=== PATIENT | male | born 1990 | race African-American/Black ===

== ENCOUNTER → 2017-01-12 | Emergency (ER) | payer OTHER ==
[~2017-01-12] VITALS: Ht 167.6 cm; Wt 70.3 kg
[~2017-01-12] MED LIST: AMOX250C3 PO; CLEO300C2 PO; HYDR-3713 PO; IBUP800T23 PO; NORCOTAB PO
[2017-01-12 23:17] VITALS: BP 134/86
== END | disposition left against medical advice (07) ==
LOC: M ED 23:17
DX: Z53.21 Procedure and treatment not carried out due to patient leaving prior to being seen by health care provider (principal)

== ENCOUNTER 2017-04-25 02:30 | Emergency (ER) | payer OTHER ==
[~2017-04-25] VITALS: Ht 165.1 cm; Wt 70.5 kg
[~2017-04-25 02:30] MED LIST changes: +IBUP1TAB7 PO; -IBUP800T23 PO
[2017-04-25 02:38] VITALS: BP 128/89
[2017-04-26] MEDS ORDERED: CYCL10TA PO (00:48)
[2017-04-26] MEDS ORDERED: IBUP-1022 PO (00:48)
== END 2017-04-25 04:22 | disposition left against medical advice (07) ==
LOC: M ED 02:30
DX: M54.9 Dorsalgia, unspecified (principal); Z53.29 Procedure and treatment not carried out because of patient's decision for other reasons

== ENCOUNTER 2017-04-26 00:22 | Emergency (ER) | payer OTHER ==
[~2017-04-26] VITALS: Ht 165.1 cm; Wt 72.7 kg
[2017-04-26 00:26] VITALS: BP 120/72
[2017-04-26] MEDS ORDERED: CYCL10TA PO (00:48)
[2017-04-26] MEDS ORDERED: IBUP-1022 PO (00:48)
[2017-04-26] MEDS ORDERED: IBUPROFEN 600 MG TAB PO ONE (01:00)
[2017-04-26] MEDS ORDERED: CYCLOBENZAPRINE 10 MG TAB PO ONE (01:00)
== END 2017-04-26 01:13 | disposition home or self-care (01) ==
LOC: M ED 00:22
DX: S43.492A Other sprain of left shoulder joint, initial encounter (principal); F17.210 Nicotine dependence, cigarettes, uncomplicated; X58.XXXA Exposure to other specified factors, initial encounter; Y92.9 Unspecified place or not applicable; Y99.9 Unspecified external cause status; Y93.9 Activity, unspecified

== ENCOUNTER 2017-05-14 01:16 | Emergency (ER) | payer OTHER ==
[~2017-05-14 01:16] MED LIST changes: +CYCL10TA PO; +IBUP-1022 PO
[2017-05-14] MEDS ORDERED: diphenhydrAMINE INJ 50MG/ML VIAL (J1200) As Ordered ONE (03:35)
--- NOTE | 2017-05-14 04:45 | ED PDOC ---
Post-Departure Follow-Up This record was completed partially or completely on paper due to electronic EMR downtime. Please see the scanned paper chart attached. Stephanie Snyder MD May 14, 2017 04:45
[2017-05-15] MEDS ORDERED: BACT800T5 PO (06:26)
== END 2017-05-14 05:01 | disposition home or self-care (01) ==
LOC: M ED 01:16
DX: S50.861A Insect bite (nonvenomous) of right forearm, initial encounter (principal); T63.441A Toxic effect of venom of bees, accidental (unintentional), initial encounter; Y92.9 Unspecified place or not applicable; Y93.9 Activity, unspecified; Y99.9 Unspecified external cause status; F17.200 Nicotine dependence, unspecified, uncomplicated
CPT/HCPCS: 99281; J1200

== ENCOUNTER 2017-05-15 04:13 | Emergency (ER) | payer OTHER ==
[2017-05-15 04:25] VITALS: BP 122/75
[2017-05-15] MEDS ORDERED: BACT800T5 PO (06:26)
[2017-05-15] MEDS ORDERED: NORCO 5/325MG TABLET (BULK FOR ED) PO ONE (06:30)
[2017-05-15] MEDS ORDERED: BACTRIM 160MG/800MG DS TAB PO ONE (06:30)
== END 2017-05-15 06:42 | disposition home or self-care (01) ==
LOC: M ED 04:13
DX: L03.113 Cellulitis of right upper limb (principal); F17.200 Nicotine dependence, unspecified, uncomplicated; M79.1 Myalgia

== ENCOUNTER 2017-06-24 08:18 | Emergency (ER) | payer OTHER ==
[~2017-06-24] VITALS: Ht 167.6 cm; Wt 75.0 kg
[~2017-06-24 08:18] MED LIST changes: +BACT800T5 PO
[2017-06-24] MEDS ORDERED: MOTR200T44 PO (08:27)
[2017-06-24] MEDS ORDERED: KETOROLAC 60 MG/2 ML VIAL (J1885) IM ONE (09:00)
[2017-06-24] MEDS ORDERED: ROBA500T PO (09:34)
[2017-06-24 09:36] VITALS: BP 126/78
== END 2017-06-24 09:40 | disposition home or self-care (01) ==
LOC: M ED 08:18
DX: M62.830 Muscle spasm of back (principal); F17.210 Nicotine dependence, cigarettes, uncomplicated; Z79.899 Other long term (current) drug therapy
CPT/HCPCS: 96372; 96374; 99282; J1885; J3360

== ENCOUNTER 2017-08-03 03:30 | Emergency (ER) | payer MEDICAID, OTHER, SELFPAY ==
[~2017-08-03] VITALS: Ht 170.2 cm; Wt 70000.0 kg
[~2017-08-03 03:30] MED LIST changes: +MOTR200T44 PO; +ROBA500T PO
[2017-08-03 03:38] VITALS: BP 135/83
== END 2017-08-03 04:22 | disposition left against medical advice (07) ==
LOC: M ED 03:30
DX: H57.8 Other specified disorders of eye and adnexa (principal); Z53.21 Procedure and treatment not carried out due to patient leaving prior to being seen by health care provider

== ENCOUNTER 2017-08-05 17:50 | Emergency (ER) | payer MEDICAID, SELFPAY ==
[~2017-08-05] VITALS: Ht 165.1 cm; Wt 73.1 kg
[2017-08-05 17:51] VITALS: BP 137/90
[2017-08-06] MEDS ORDERED: NAPR500T PO (04:11)
== END 2017-08-05 19:40 | disposition left against medical advice (07) ==
LOC: M ED 17:50
DX: R07.9 Chest pain, unspecified (principal); Z53.21 Procedure and treatment not carried out due to patient leaving prior to being seen by health care provider

== ENCOUNTER 2017-08-05 23:11 | Emergency (ER) | payer MEDICAID, SELFPAY ==
[~2017-08-05] VITALS: Ht 165.1 cm; Wt 70.3 kg
[2017-08-06] MEDS ORDERED: NS 1,000 ML IV ONE (01:45)
[2017-08-06 01:56] LABS: ANION GAP 3 MEQ/L (8-16); BLOOD UREA NITROGEN 15 MG/DL (7-18); CALCIUM LEVEL 9.5 MG/DL (8.5-10.1); CARBON DIOXIDE LEVEL 32 MEQ/L (21-32); CHLORIDE LEVEL 105 MEQ/L (98-107); CREATININE FOR GFR 0.91 MG/DL (0.70-1.30); GLOMERULAR FILTRATION RATE > 60.0 (>60); GLUCOSE, FASTING 91 MG/DL (70-105); POTASSIUM SERUM 3.9 MEQ/L (3.5-5.1); SODIUM LEVEL 140 MEQ/L (136-145)
[2017-08-06 02:07] LABS: BASO % 0.3 % (0.0-1.0); EOS # 0.2 10^3/uL (0.0-0.50); EOS % 2.8 % (0.0-3.0); IMMATURE GRANULOCYTE % 0.4 % (0-0); LYMPH # 2.6 10^3/uL (1.5-6.5); LYMPH % 38.6 % (24.0-44.0); MEAN CORPUSCULAR HEMOGLOBIN 32.4 pg (27.0-33.0); MEAN CORPUSCULAR HGB CONC 35.6 g/dl (32.0-36.5); MONO # 0.6 10^3/uL (0.0-0.8); MONO % 8.4 % (0.0-5.0); NEUTROPHILS # 3.3 10^3/uL (1.8-7.7); NEUTROPHILS % 49.5 % (36.0-66.0); PLATELET COUNT, AUTOMATED 190 10^3/uL (150-450); WHITE BLOOD COUNT 6.7 10^3/uL (4.0-10.0)
--- NOTE | 2017-08-06 02:14 | REP ---
Clinical: Chest pain . Comparison: 08/17/2015 . Technique: PA and lateral. Findings: The mediastinum and cardiac silhouette are normal. The lung olson are clear and without acute consolidation, effusion, or pneumothorax. The skeletal structures are intact and normal. Impression: 1. No acute cardiopulmonary process. Signed by Ravi Mojica MD 08/06/2017 02:05 A
[2017-08-06] MEDS ORDERED: NAPR500T PO (04:11)
[2017-08-06] MEDS ORDERED: hydrOXYzine 25 MG TAB PO ONE (04:15)
[2017-08-06] MEDS ORDERED: NAPROXEN 250 MG TAB PO ONE (04:15)
[2017-08-06 04:39] VITALS: BP 128/70
--- NOTE | 2017-08-06 08:55 | ECGEPIP ---
Stationary ECG Study [facility] - ED Test Date: 2017-08-05 Pat Name: MARE CAMPBELL Department: Room: - Gender: M Implementation Engineer: vinnie : 1990 Requested By: MARTA De La Cruz Order Number: [id number] Reading MD: Harpreet Moreno Measurements Intervals [place] Rate: 63 P: 73 [place]: 149 QRS: 51 QRSD: 91 T: 38 QT: 378 QTc: 389 Interpretive Statements SINUS RHYTHM POSSIBLE LEFT ATRIAL ENLARGEMENT BENIGN EARLY REPOLARIZATION SIMILAR TO 10/26/14 Electronically Signed On 08-06-2017 8:55:40 EDT by Harpreet Moreno
== END 2017-08-06 04:40 | disposition home or self-care (01) ==
LOC: M ED 23:11
DX: R07.89 Other chest pain (principal); F17.200 Nicotine dependence, unspecified, uncomplicated; F12.10 Cannabis abuse, uncomplicated; Z82.49 Family history of ischemic heart disease and other diseases of the circulatory system

== ENCOUNTER 2017-10-26 09:25 | Emergency (ER) | payer OTHER, MEDICAID ==
[2017-10-26] MEDS: guaiFENesin ER 600 MG TAB PO (11:07)
[2017-10-26] MEDS ORDERED: guaiFENesin ER 600 MG TAB PO (21:00)
== END 2017-10-26 11:19 | disposition home or self-care (01) ==
LOC: M ED 09:25
DX: R05 Cough (principal); F17.200 Nicotine dependence, unspecified, uncomplicated
CPT/HCPCS: 99283

== ENCOUNTER 2018-01-01 01:45 | Emergency (ER) | payer OTHER ==
[2018-01-01] MEDS: KETOROLAC 60 MG/2 ML VIAL (J1885) IM (03:40)
== END 2018-01-01 04:34 | disposition home or self-care (01) ==
LOC: M ED 01:45
DX: M54.5 Low back pain (principal); Z91.041 Radiographic dye allergy status
CPT/HCPCS: J1885

== ENCOUNTER 2018-02-10 00:13 | Emergency (ER) | payer OTHER ==
[2018-02-10] MEDS: NS 1,000 ML IV (01:20)
[2018-02-10 01:26] LABS: BASO % 0.3 % (0.0-1.0); EOS # 0.2 10^3/uL (0.0-0.50); EOS % 3.6 % (0.0-3.0); HEMATOCRIT 45.2 % (42.0-52.0); HEMOGLOBIN 15.6 g/dl (13.5-17.5); IMMATURE GRANULOCYTE % 0.2 % (0-3.0); LYMPH # 2.2 10^3/uL (1.5-6.5); LYMPH % 37.9 % (24.0-44.0); MEAN CORPUSCULAR HEMOGLOBIN 31.5 pg (27.0-33.0); MEAN CORPUSCULAR HGB CONC 34.5 g/dl (32.0-36.5); MEAN CORPUSCULAR VOLUME 91.1 fl (80.0-96.0); MONO # 0.6 10^3/uL (0.0-0.8); MONO % 10.2 % (0.0-5.0); NEUTROPHILS # 2.8 10^3/uL (1.8-7.7); NEUTROPHILS % 47.8 % (36.0-66.0); PLATELET COUNT, AUTOMATED 186 10^3/uL (150-450); RED BLOOD COUNT 4.96 10^6/uL (4.30-6.10); WHITE BLOOD COUNT 5.9 10^3/uL (4.0-10.0)
[2018-02-10 01:50] LABS: ALBUMIN 3.8 GM/DL (3.2-5.2); ALKALINE PHOSPHATASE 89 U/L (45-117); ALT/SGPT 28 U/L (12-78); ANION GAP 5 MEQ/L (8-16); AST/SGOT 17 U/L (7-37); BILIRUBIN,DIRECT < 0.1 MG/DL (0.0-0.2); BILIRUBIN,TOTAL 0.2 MG/DL (0.2-1.0); BLOOD UREA NITROGEN 10 MG/DL (7-18); CALCIUM LEVEL 8.7 MG/DL (8.5-10.1); CARBON DIOXIDE LEVEL 29 MEQ/L (21-32); CHLORIDE LEVEL 108 MEQ/L (98-107); GLOMERULAR FILTRATION RATE > 60.0 (>60); GLUCOSE, FASTING 84 MG/DL (70-100); LIPASE 138 U/L (73-393); POTASSIUM SERUM 3.6 MEQ/L (3.5-5.1); SODIUM LEVEL 142 MEQ/L (136-145); TOTAL PROTEIN 7.6 GM/DL (6.4-8.2)
[2018-02-10 02:11] LABS: APPEARANCE, URINE CLEAR (CLEAR); BACTERIA, URINE AUTO NEGATIVE (NEGATIVE); BILIRUBIN, URINE AUTO NEGATIVE (NEGATIVE); BLOOD, URINE BLOOD NEGATIVE (NEGATIVE); COLOR, URINE YELLOW (YELLOW); GLUCOSE, URINE (UA) AUTO NEGATIVE (NEGATIVE); KETONE, URINE AUTO NEGATIVE (NEGATIVE); LEUKOCYTE ESTERASE, URINE AUTO NEGATIVE (NEGATIVE); MUCUS, URINE SMALL (NEGATIVE); NITRITE, URINE AUTO NEGATIVE (NEGATIVE); PROTEIN, URINE AUTO NEGATIVE (NEGATIVE); RBC, URINE AUTO 1 /HPF (0-3); SPECIFIC GRAVITY URINE AUTO 1.017 (1.002-1.035); SQUAMOUS EPITHELIAL CELL UR AU 0 /HPF (0-6); UROBILINOGEN, URINE AUTO 0.2 mg/dL (0.0-2.0); WBC, URINE AUTO 0 /HPF (0-3)
[2018-02-10] MEDS ORDERED: GASTROGRAFIN SOLUTION 30ML PO (02:30)
== END 2018-02-10 05:11 | disposition home or self-care (01) ==
LOC: M ED 00:13
DX: R10.9 Unspecified abdominal pain (principal); R19.7 Diarrhea, unspecified; K21.9 Gastro-esophageal reflux disease without esophagitis; Z79.899 Other long term (current) drug therapy; Z91.041 Radiographic dye allergy status; F17.210 Nicotine dependence, cigarettes, uncomplicated
CPT/HCPCS: 74176

== ENCOUNTER → 2018-05-28 | Outpatient (CLI) | payer OTHER | LOC: M RAD 07:01 | DX: R10.9 Unspecified abdominal pain (principal); R19.7 Diarrhea, unspecified; Z90.49 Acquired absence of other specified parts of digestive tract | CPT/HCPCS: 76705 ==

== ENCOUNTER 2018-07-01 12:07 | Day surgery (SDC) | payer OTHER ==
[2018-07-01] MEDS ORDERED: fentaNYL 100 MCG/2 ML INJECTION (J3010) As Ordered (13:04)
[2018-07-01] MEDS ORDERED: LIDOCAINE 2% INJ 100 MG/5 ML SDV (FOR ANES.) As Ordered (13:08)
[2018-07-01] MEDS ORDERED: PROPOFOL 200 MG/20 ML VIAL As Ordered ×2 (13:08→13:58)
== END 2018-07-01 15:10 | disposition home or self-care (01) ==
LOC: M OPP 12:07
DX: R10.32 Left lower quadrant pain (principal); R19.4 Change in bowel habit; K64.0 First degree hemorrhoids; R10.13 Epigastric pain; K29.70 Gastritis, unspecified, without bleeding; R07.89 Other chest pain; R19.7 Diarrhea, unspecified; K21.9 Gastro-esophageal reflux disease without esophagitis; R12 Heartburn; R06.02 Shortness of breath; G47.30 Sleep apnea, unspecified; R06.83 Snoring; F17.210 Nicotine dependence, cigarettes, uncomplicated; Z91.041 Radiographic dye allergy status; Z79.899 Other long term (current) drug therapy; Z80.9 Family history of malignant neoplasm, unspecified
CPT/HCPCS: 45378

== ENCOUNTER 2018-07-19 02:27 | Emergency (ER) | payer OTHER ==
[2018-07-19] MEDS: BENZONATATE 100 MG CAP PO (04:37)
== END 2018-07-19 04:38 | disposition home or self-care (01) ==
LOC: M ED 02:27
DX: R05 Cough (principal); F17.210 Nicotine dependence, cigarettes, uncomplicated; Z91.041 Radiographic dye allergy status
CPT/HCPCS: 71046

== ENCOUNTER 2018-08-01 18:16 | Emergency (ER) | payer MEDICAID, SELFPAY, OTHER ==
[2018-08-01] MEDS: methylPREDNISolone INJ 125 MG/2 ML VIAL (J2930) IM (19:14)
[2018-08-01] MEDS: BENZONATATE 100 MG CAP PO (19:14)
[2018-08-01 19:36] LABS: BASO % 0.4 % (0.0-1.0); EOS # 0.1 10^3/uL (0.0-0.50); HEMOGLOBIN 17.2 g/dl (13.5-17.5); IMMATURE GRANULOCYTE % 0.1 % (0-3.0); LYMPH # 2.3 10^3/uL (1.5-4.5); LYMPH % 31.2 % (24.0-44.0); MEAN CORPUSCULAR HGB CONC 34.4 g/dl (32.0-36.5); MEAN CORPUSCULAR VOLUME 90.3 fl (80.0-96.0); MONO # 0.5 10^3/uL (0.0-0.8); MONO % 7.1 % (0.0-5.0); NEUTROPHILS # 4.4 10^3/uL (1.8-7.7); NEUTROPHILS % 60.2 % (36.0-66.0); PLATELET COUNT, AUTOMATED 204 10^3/uL (150-450); RED BLOOD COUNT 5.54 10^6/uL (4.30-6.10); RED CELL DISTRIBUTION WIDTH 12.7 % (11.5-14.5); WHITE BLOOD COUNT 7.2 10^3/uL (4.0-10.0)
[2018-08-01] MEDS: IPRATROPIUM 0.5MG/ALBUTEROL 2.5MG INH SOL UD 3ML (DUONEB)(J7620) NEB (19:42)
[2018-08-01 19:55] LABS: ANION GAP 7 MEQ/L (8-16); BLOOD UREA NITROGEN 9 MG/DL (7-18); CALCIUM LEVEL 9.7 MG/DL (8.5-10.1); CARBON DIOXIDE LEVEL 29 MEQ/L (21-32); CHLORIDE LEVEL 105 MEQ/L (98-107); CREATININE FOR GFR 1.07 MG/DL (0.70-1.30); GLOMERULAR FILTRATION RATE > 60.0 (>60); GLUCOSE, FASTING 82 MG/DL (70-100); POTASSIUM SERUM 4.2 MEQ/L (3.5-5.1); SODIUM LEVEL 141 MEQ/L (136-145)
== END 2018-08-01 20:09 | disposition home or self-care (01) ==
LOC: M ED 18:16
DX: J06.9 Acute upper respiratory infection, unspecified (principal); B34.9 Viral infection, unspecified; Z91.041 Radiographic dye allergy status; F17.210 Nicotine dependence, cigarettes, uncomplicated
CPT/HCPCS: J2930

== ENCOUNTER 2018-08-08 18:01 | Emergency (ER) | payer MEDICAID, SELFPAY ==
[2018-08-08] MEDS: GI COCKTAIL 50ML BTL(HYOSCYAMINE/MAALOX/LIDOCAINE VISCOUS)(1:3:1) PO (18:45)
[2018-08-08 18:57] LABS: BASO % 0.2 % (0.0-1.0); EOS # 0.1 10^3/uL (0.0-0.50); EOS % 1.6 % (0.0-3.0); HEMATOCRIT 48.8 % (42.0-52.0); HEMOGLOBIN 16.9 g/dl (13.5-17.5); IMMATURE GRANULOCYTE % 0.5 % (0-3.0); LYMPH # 2.7 10^3/uL (1.5-4.5); LYMPH % 30.2 % (24.0-44.0); MEAN CORPUSCULAR HEMOGLOBIN 31.6 pg (27.0-33.0); MEAN CORPUSCULAR HGB CONC 34.6 g/dl (32.0-36.5); MEAN CORPUSCULAR VOLUME 91.2 fl (80.0-96.0); MONO # 0.6 10^3/uL (0.0-0.8); NEUTROPHILS # 5.4 10^3/uL (1.8-7.7); NEUTROPHILS % 60.5 % (36.0-66.0); RED BLOOD COUNT 5.35 10^6/uL (4.30-6.10); RED CELL DISTRIBUTION WIDTH 13.3 % (11.5-14.5); WHITE BLOOD COUNT 8.9 10^3/uL (4.0-10.0)
[2018-08-08 19:31] LABS: POS COUNT POS FLAG
[2018-08-08 19:33] LABS: ADD MORPHOLOGY? YES
[2018-08-08 19:35] LABS: PLATELET CLUMPS MODERATE AMT; PLATELET ESTIMATE NORMAL (NORMAL)
[2018-08-08 20:01] LABS: ALBUMIN 3.6 GM/DL (3.2-5.2); ALKALINE PHOSPHATASE 73 U/L (45-117); ALT/SGPT 40 U/L (12-78); ANION GAP 9 MEQ/L (8-16); AST/SGOT 17 U/L (7-37); BILIRUBIN,DIRECT < 0.1 MG/DL (0.0-0.2); BILIRUBIN,TOTAL 0.2 MG/DL (0.2-1.0); BLOOD UREA NITROGEN 13 MG/DL (7-18); CALCIUM LEVEL 8.5 MG/DL (8.5-10.1); CARBON DIOXIDE LEVEL 26 MEQ/L (21-32); CHLORIDE LEVEL 108 MEQ/L (98-107); CK-MB VALUE MASS < 1.0 NG/ML (<3.6); CPK CREATINE PHOSPHOKINASE 72 U/L (39-308); CREATININE FOR GFR 0.93 MG/DL (0.70-1.30); GLOMERULAR FILTRATION RATE > 60.0 (>60); GLUCOSE, FASTING 111 MG/DL (70-100); LIPASE 174 U/L (73-393); MB/CK RELATIVE INDEX 1.39 (< OR =4); POTASSIUM SERUM 3.6 MEQ/L (3.5-5.1); SODIUM LEVEL 143 MEQ/L (136-145); TOTAL PROTEIN 7.2 GM/DL (6.4-8.2); TROPONIN I < 0.02 NG/ML (< 0.10)
== END 2018-08-08 20:20 | disposition home or self-care (01) ==
LOC: M ED 18:01
DX: R07.9 Chest pain, unspecified (principal)
CPT/HCPCS: 71046

== ENCOUNTER 2018-09-06 14:38 | Emergency (ER) | payer MEDICAID ==
[2018-09-06 15:33] LABS: BASO % 0.4 % (0.0-1.0); EOS # 0.1 10^3/uL (0.0-0.50); EOS % 2.2 % (0.0-3.0); HEMATOCRIT 47.3 % (42.0-52.0); HEMOGLOBIN 16.2 g/dl (13.5-17.5); IMMATURE GRANULOCYTE % 0.2 % (0-3.0); LYMPH # 2.1 10^3/uL (1.5-4.5); LYMPH % 38.5 % (24.0-44.0); MEAN CORPUSCULAR HEMOGLOBIN 31.2 pg (27.0-33.0); MEAN CORPUSCULAR HGB CONC 34.2 g/dl (32.0-36.5); MEAN CORPUSCULAR VOLUME 91.1 fl (80.0-96.0); MONO # 0.5 10^3/uL (0.0-0.8); MONO % 8.7 % (0.0-5.0); NEUTROPHILS # 2.8 10^3/uL (1.8-7.7); PLATELET COUNT, AUTOMATED 216 10^3/uL (150-450); RED BLOOD COUNT 5.19 10^6/uL (4.30-6.10); WHITE BLOOD COUNT 5.5 10^3/uL (4.0-10.0)
[2018-09-06 16:07] LABS: ALBUMIN/GLOBULIN RATIO 1.18 (1.00-1.93); ALKALINE PHOSPHATASE 69 U/L (45-117); ALT/SGPT 31 U/L (12-78); ANION GAP 7 MEQ/L (8-16); AST/SGOT 22 U/L (7-37); BILIRUBIN,DIRECT < 0.1 MG/DL (0.0-0.2); BILIRUBIN,TOTAL 0.3 MG/DL (0.2-1.0); BLOOD UREA NITROGEN 11 MG/DL (7-18); CALCIUM LEVEL 9.1 MG/DL (8.5-10.1); CARBON DIOXIDE LEVEL 29 MEQ/L (21-32); CHLORIDE LEVEL 106 MEQ/L (98-107); CK-MB VALUE MASS < 1.0 NG/ML (<3.6); CPK CREATINE PHOSPHOKINASE 168 U/L (39-308); CREATININE FOR GFR 0.99 MG/DL (0.70-1.30); GLOMERULAR FILTRATION RATE > 60.0 (>60); GLUCOSE, FASTING 93 MG/DL (70-100); LIPASE 96 U/L (73-393); POTASSIUM SERUM 3.6 MEQ/L (3.5-5.1); SODIUM LEVEL 142 MEQ/L (136-145); TOTAL PROTEIN 7.4 GM/DL (6.4-8.2); TROPONIN I < 0.02 NG/ML (< 0.10)
== END 2018-09-06 16:32 | disposition home or self-care (01) ==
LOC: M ED 14:38
DX: F43.0 Acute stress reaction (principal); R07.89 Other chest pain; K21.9 Gastro-esophageal reflux disease without esophagitis; Z91.041 Radiographic dye allergy status; F17.210 Nicotine dependence, cigarettes, uncomplicated
CPT/HCPCS: 71046

== ENCOUNTER 2018-09-24 15:51 | Emergency (ER) | payer MEDICAID | END 2018-09-24 17:49 | disposition home or self-care (01) | LOC: M ED 15:51 | DX: S16.1XXA Strain of muscle, fascia and tendon at neck level, initial encounter (principal); X58.XXXA Exposure to other specified factors, initial encounter; Y92.89 Other specified places as the place of occurrence of the external cause; R13.10 Dysphagia, unspecified; F41.9 Anxiety disorder, unspecified; Z91.041 Radiographic dye allergy status; F17.210 Nicotine dependence, cigarettes, uncomplicated | CPT/HCPCS: 93005 ==

== ENCOUNTER → 2018-10-18 | Outpatient (REF) | payer MEDICAID ==
[~2018-10-18] MED LIST changes: +12 H120T2 PO; +AMOX500C; +CARA1TAB6 PO; +CEPH500C; +CLAR500T; +CLAR500T PO; +KETO10TAB PO; +MOBI4TAB PO; +MUCI1TAB16 PO; +NAPR-50 PO; +OMEP10CASR PO; +OMEP40CA2 PO; +PRED20TA PO; +SIME180C PO; +SOMA350T PO; +TESS100C PO; +ZANA4TAB PO
== END ==
LOC: M LAB 10:56
PROVIDERS: ATTEND Internal Medicine Gastroenterology
DX: R10.9 Unspecified abdominal pain (principal)

== ENCOUNTER 2018-10-27 12:10 | Emergency (ER) | payer MEDICAID ==
[~2018-10-27] VITALS: Ht 167.6 cm; Wt 66.4 kg
[2018-10-27 12:10] VITALS: BP 135/86
[~2018-10-27 12:10] MED LIST changes: -MOBI4TAB PO; -SOMA350T PO; -ZANA4TAB PO
[2018-10-27] MEDS ORDERED: SOMA350T PO (12:35)
--- NOTE | 2018-10-27 12:36 | REP ---
Clinical: Pain . Technique: Internal rotation, external rotation, and Y view right shoulder. Findings: No acute fracture or dislocation. The acromioclavicular and glenohumeral joints are intact. No periarticular calcifications or degenerative changes are appreciated. Sub acromial space is normal. Surrounding soft tissues are unremarkable. Impression: Normal right shoulder radiographs. Electronically Signed by Ravi Mojica MD 10/27/2018 12:28 P
== END 2018-10-27 12:45 | disposition home or self-care (01) ==
LOC: M ED 12:10
DX: M62.838 Other muscle spasm (principal); F17.210 Nicotine dependence, cigarettes, uncomplicated

== ENCOUNTER 2018-11-01 10:20 | Emergency (ER) | payer MEDICAID ==
[~2018-11-01] VITALS: Ht 167.6 cm; Wt 66.4 kg
[2018-11-01 10:20] VITALS: BP 140/82
[~2018-11-01 10:20] MED LIST changes: +SOMA350T PO
[2018-11-01] MEDS ORDERED: ZANA4TAB PO (10:51)
[2018-11-01] MEDS ORDERED: PRED20TA PO (10:51)
[2018-11-01] MEDS ORDERED: MOBI4TAB PO (10:51)
== END 2018-11-01 11:04 | disposition home or self-care (01) ==
LOC: M ED 10:20
DX: R07.89 Other chest pain (principal); S16.1XXA Strain of muscle, fascia and tendon at neck level, initial encounter; X58.XXXA Exposure to other specified factors, initial encounter; Y92.89 Other specified places as the place of occurrence of the external cause; Z91.041 Radiographic dye allergy status; F17.210 Nicotine dependence, cigarettes, uncomplicated

== ENCOUNTER → 2018-12-02 | Outpatient (REF) | payer OTHER ==
[~2018-12-02] MED LIST changes: +ACET500T15 PO; +CETI10TA PO; +MOBI4TAB PO; +MUCI600T37 PO; +ZANA4TAB PO
== END ==
LOC: M LAB REF 15:54
PROVIDERS: ATTEND Internal Medicine Gastroenterology
DX: R10.9 Unspecified abdominal pain (principal)

== ENCOUNTER 2018-12-05 10:19 | Emergency (ER) | payer OTHER ==
[~2018-12-05] VITALS: Ht 167.6 cm; Wt 65.9 kg
[~2018-12-05 10:19] MED LIST changes: -ACET500T15 PO; -CETI10TA PO; -MUCI600T37 PO
[2018-12-05] MEDS ORDERED: ACET500T15 PO (10:29)
[2018-12-05] MEDS ORDERED: CETI10TA PO (10:29)
[2018-12-05] MEDS ORDERED: MUCI600T37 PO (11:52)
[2018-12-05] MEDS ORDERED: TESS100C PO (11:52)
[2018-12-05 11:58] VITALS: BP 127/79
--- NOTE | 2018-12-05 12:46 | REP ---
CHEST, TWO VIEWS: There is no evidence of acute infiltrate. No pleural effusion is seen. The heart is normal in size. The mediastinal silhouette is unremarkable. The visualized osseous structures are intact. IMPRESSION: No acute pulmonary disease. Electronically Signed by Abelardo Banda MD 12/05/2018 07:25 P
== END 2018-12-05 12:00 | disposition home or self-care (01) ==
LOC: M ED 10:19
DX: J40 Bronchitis, not specified as acute or chronic (principal); K21.9 Gastro-esophageal reflux disease without esophagitis; F41.9 Anxiety disorder, unspecified; F17.200 Nicotine dependence, unspecified, uncomplicated; Z91.041 Radiographic dye allergy status; Z79.899 Other long term (current) drug therapy

== ENCOUNTER 2019-01-01 11:15 | Day surgery (SDC) | payer OTHER ==
[~2019-01-01] VITALS: Ht 167.6 cm; Wt 74.4 kg
[~2019-01-01 11:15] MED LIST changes: +ACET500T15 PO; +CETI10TA PO; +MUCI600T37 PO; +NS 1,000 ML IV ONE; +[UNRECOGNIZED DRUG - CODE] PO
[2019-01-01] MEDS ORDERED: LIDOCAINE 2% INJ 100 MG/5 ML SDV (FOR ANES.) As Ordered ONE (12:59)
[2019-01-01] MEDS ORDERED: PROPOFOL 500 MG/50 ML VIAL As Ordered ONE (12:59)
[2019-01-01] MEDS ORDERED: PROPOFOL 200 MG/20 ML VIAL As Ordered ONE (12:59)
[2019-01-01] MEDS ORDERED: fentaNYL 100 MCG/2 ML INJECTION (J3010) As Ordered ONE (12:59)
--- NOTE | 2019-01-01 13:10 | ROOR ---
Patient Name: Josesito Nesbitt Procedure Date: 01/01/2019 12:51 PM Date of : 1990 Age: 28 Room: [facility] Gender: Male Note Status: Finalized Procedure: Upper Endoscopy + Biopsies Indications: Exclusion of Helicobacter pylori, Follow-up of Helicobacter pylori, Positive Helicobacter pylori stool antigen test Providers: Patrick Patricio MD Referring MD: Patrick Patricio MD Requesting Provider: Medicines: Monitored Anesthesia Care Complications: No immediate complications. Procedure: Pre-Anesthesia Assessment: - The heart rate, respiratory rate, oxygen saturations, blood pressure, adequacy of pulmonary ventilation, and response to care were monitored throughout the procedure. The Endoscope was introduced through the mouth, and advanced to the second part of duodenum. The upper GI endoscopy was accomplished without difficulty. The patient tolerated the procedure well. Findings: The Z-line was regular and was found 38 cm from the incisors. No other significant abnormalities were identified in a careful examination of the stomach. Biopsies were taken with a cold forceps in the gastric antrum for Helicobacter pylori cultures. The exam of the duodenum was otherwise normal. Impression: - Z-line regular, 38 cm from the incisors. - Biopsies were taken with a cold forceps for Helicobacter pylori cultures. - The examination was otherwise normal. Recommendation: - Patient has a contact number available for emergencies. The signs and symptoms of potential delayed complications were discussed with the patient. Return to normal activities tomorrow. Written discharge instructions were provided to the patient. - Resume previous diet. - Discharge patient to home. - Continue present medications. - Await pathology results. - Telephone GI clinic for pathology results in 1 week. - Check Portal Online for Path Results.([email or web address]) - Return to referring physician. - The findings and recommendations were discussed with the patient's family. Patrick Patricio MD Patrick Patricio MD 01/01/2019 1:09:37 PM This report has been signed electronically. Number of Addenda: 0 Note Initiated On: 01/01/2019 12:51 PM Estimated Blood Loss: Estimated blood loss: none.
[2019-01-01 13:30] VITALS: BP 125/82
== END 2019-01-01 13:50 | disposition home or self-care (01) ==
LOC: M OPP 11:15
PROVIDERS: ATTEND Internal Medicine Gastroenterology
DX: R10.9 Unspecified abdominal pain (principal); B96.81 Helicobacter pylori [H. pylori] as the cause of diseases classified elsewhere; F17.210 Nicotine dependence, cigarettes, uncomplicated; Z79.899 Other long term (current) drug therapy; Z91.041 Radiographic dye allergy status; Z90.49 Acquired absence of other specified parts of digestive tract
CPT/HCPCS: 43239; 88305; 88313; J3010

== ENCOUNTER → 2019-03-09 | Outpatient (REF) | payer OTHER ==
[~2019-03-09] MED LIST changes: +HYDR-3715 PO; +HYOS0.1214 PO; -NAPR-50 PO; +NAPR-837 PO; -NORCOTAB PO; -NS 1,000 ML IV ONE; -[UNRECOGNIZED DRUG - CODE] PO
== END ==
LOC: M LAB REF 16:28
PROVIDERS: ATTEND Internal Medicine Gastroenterology
DX: R10.9 Unspecified abdominal pain (principal)

== ENCOUNTER 2019-04-09 01:16 | Emergency (ER) | payer OTHER ==
[2019-04-09 02:01] LABS: BASO % 0.4 % (0.0-1.0); EOS # 0.3 10^3/uL (0.0-0.50); EOS % 3.4 % (0.0-3.0); HEMATOCRIT 50.3 % (42.0-52.0); HEMOGLOBIN 17.3 g/dl (13.5-17.5); LYMPH # 3.1 10^3/uL (1.5-4.5); LYMPH % 41.7 % (24.0-44.0); MEAN CORPUSCULAR HEMOGLOBIN 32.2 pg (27.0-33.0); MEAN CORPUSCULAR HGB CONC 34.4 g/dl (32.0-36.5); MEAN CORPUSCULAR VOLUME 93.7 fl (80.0-96.0); MONO # 0.8 10^3/uL (0.0-0.8); MONO % 11.2 % (0.0-5.0); NEUTROPHILS # 3.2 10^3/uL (1.8-7.7); PLATELET COUNT, AUTOMATED 180 10^3/uL (150-450); RED BLOOD COUNT 5.37 10^6/uL (4.30-6.10); WHITE BLOOD COUNT 7.4 10^3/uL (4.0-10.0)
[2019-04-09 02:24] LABS: ALBUMIN 3.7 GM/DL (3.2-5.2); ALT/SGPT 38 U/L (12-78); BILIRUBIN,DIRECT < 0.1 MG/DL (0.0-0.2); BILIRUBIN,TOTAL 0.2 MG/DL (0.2-1.0); BLOOD UREA NITROGEN 17 MG/DL (7-18); CARBON DIOXIDE LEVEL 30 MEQ/L (21-32); CHLORIDE LEVEL 106 MEQ/L (98-107); CREATININE FOR GFR 1.36 MG/DL (0.70-1.30); GLOMERULAR FILTRATION RATE > 60.0 (>60); GLUCOSE, FASTING 91 MG/DL (70-100); LIPASE 137 U/L (73-393); SODIUM LEVEL 140 MEQ/L (136-145); TOTAL PROTEIN 7.9 GM/DL (6.4-8.2)
[2019-04-09] MEDS ORDERED: TETR1CAP2 PO (02:56)
[2019-04-09] MEDS ORDERED: FLAG500T PO (02:56)
[2019-04-09] MEDS ORDERED: PRIL20TA2 PO (02:58)
[2019-04-09] MEDS ORDERED: PEPT262T2 PO (02:58)
[2019-04-09] MEDS ORDERED: GI COCKTAIL 50ML BTL(HYOSCYAMINE/MAALOX/LIDOCAINE VISCOUS)(1:3:1) PO ONE (03:00)
[2019-04-09] MEDS ORDERED: SUCRALFATE SUSP 1GM/10ML UD PO ONE (03:00)
--- NOTE | 2019-04-09 04:05 | REPVR ---
EXAM: CT Abdomen and Pelvis Without Contrast EXAM DATE/TIME: 04/09/2019 3:00 AM CLINICAL HISTORY: 29 years old, male; Abdominal pain; Generalized; Prior surgery; Surgery date: 6+ months; Surgery type: Gb&appy; Additional info: Pain/contrast allergy TECHNIQUE: Imaging protocol: Axial computed tomography images of the abdomen and pelvis without contrast. Coronal and sagittal reformatted images were created and reviewed. Radiation optimization: All CT scans at this facility use at least one of these dose optimization techniques: automated exposure control; mA and/or kV adjustment per patient size (includes targeted exams where dose is matched to clinical indication); or iterative reconstruction. COMPARISON: No relevant prior studies available. FINDINGS: Lungs: Minimal right middle lobe atelectasis or scar. ABDOMEN: Liver: Normal. No mass. Gallbladder and bile ducts: Status post cholecystectomy. Pancreas: Normal. No ductal dilation. Spleen: Normal. No splenomegaly. Adrenals: Normal. No mass. Kidneys and ureters: Normal. No hydronephrosis. Stomach and bowel: Normal. No obstruction. No mucosal thickening. Appendix: The appendix is not seen. PELVIS: Bladder: Unremarkable as visualized. Reproductive: Unremarkable as visualized. ABDOMEN and PELVIS: Intraperitoneal space: Normal. No free air. No significant fluid collection. Bones/joints: No acute fracture. No dislocation. Soft tissues: Unremarkable. Vasculature: Normal. No abdominal aortic aneurysm. Lymph nodes: Normal. No enlarged lymph nodes. IMPRESSION: 1. Status post cholecystectomy. 2. Otherwise negative CT abdomen/pelvis. Electronically signed by: Tito Farmer On 04/09/2019 04:05:20 AM
[2019-04-09 04:38] VITALS: BP 125/84
== END 2019-04-09 05:17 | disposition home or self-care (01) ==
LOC: M ED 01:16
DX: K29.70 Gastritis, unspecified, without bleeding (principal); Z86.19 Personal history of other infectious and parasitic diseases; Z91.041 Radiographic dye allergy status

== ENCOUNTER → 2019-07-20 | Outpatient (REF) | payer OTHER ==
[~2019-07-20] MED LIST changes: +FLAG500T PO; +PEPT262T2 PO; +PRIL20TA2 PO; +TETR1CAP2 PO
== END ==
LOC: M LAB REF 12:32
PROVIDERS: ATTEND Internal Medicine
DX: R10.10 Upper abdominal pain, unspecified (principal)

== ENCOUNTER → 2019-09-14 | Outpatient (CLI) | payer OTHER ==
[~2019-09-14] MED LIST changes: -OMEP40CA2 PO; +OMEP40CA97 PO
--- NOTE | 2019-09-14 21:28 | REP ---
MRCP: MRCP examination was accomplished utilizing multiple heavily T2-weighted sequences in the axial and coronal planes with MIP reconstruction images. The patient has had a prior cholecystectomy. There is no intrahepatic biliary dilatation. The common bile duct measures 7 mm which is within normal limits for patient's status post cholecystectomy. There is no pancreatic ductal dilatation. No free fluid is seen in the visualized abdomen. No abnormality is seen in the visualized liver, spleen, pancreas, adrenals or kidneys. There is no evidence of choledocholithiasis. IMPRESSION: Status post cholecystectomy. No biliary dilatation or choledocholithiasis. Electronically Signed by Abelardo Banda MD 09/15/2019 03:45 P
== END ==
LOC: M RAD 18:14
PROVIDERS: ATTEND Internal Medicine
DX: R74.8 Abnormal levels of other serum enzymes (principal); Z90.49 Acquired absence of other specified parts of digestive tract

== ENCOUNTER → 2019-10-05 | Outpatient (REF) | payer OTHER ==
[2019-10-05 13:21] LABS: BASO % 0.6 % (0.0-1.0); EOS # 0.1 10^3/uL (0.0-0.5); EOS % 1.9 % (0.0-3.0); HEMATOCRIT 52.6 % (42.0-52.0); HEMOGLOBIN 17.3 g/dl (13.5-17.5); LYMPH # 1.6 10^3/uL (1.5-5.0); LYMPH % 33.3 % (24.0-44.0); MEAN CORPUSCULAR HEMOGLOBIN 31.1 pg (27.0-33.0); MEAN CORPUSCULAR HGB CONC 32.9 g/dl (32.0-36.5); MEAN CORPUSCULAR VOLUME 94.4 fl (80.0-96.0); MONO # 0.5 10^3/uL (0.0-0.8); MONO % 10.7 % (0.0-5.0); NEUTROPHILS # 2.5 10^3/uL (1.5-8.5); NEUTROPHILS % 53.3 % (36.0-66.0); PLATELET COUNT, AUTOMATED 192 10^3/uL (150-450); RED BLOOD COUNT 5.57 10^6/uL (4.30-6.10); WHITE BLOOD COUNT 4.7 10^3/uL (4.0-10.0)
[2019-10-05 13:57] LABS: ALBUMIN 4.1 GM/DL (3.2-5.2); ALT/SGPT 37 U/L (12-78); BILIRUBIN,TOTAL 0.5 MG/DL (0.2-1.0); BLOOD UREA NITROGEN 14 MG/DL (7-18); C REACTIVE PROTEIN QUANTITATIV < 0.30 MG/DL (0.00-0.30); CALCIUM LEVEL 9.6 MG/DL (8.5-10.1); CARBON DIOXIDE LEVEL 29 MEQ/L (21-32); CHLORIDE LEVEL 107 MEQ/L (98-107); CREATININE FOR GFR 1.06 MG/DL (0.70-1.30); GLOMERULAR FILTRATION RATE > 60.0 (>60); GLUCOSE, FASTING 84 MG/DL (70-100); POTASSIUM SERUM 4.2 MEQ/L (3.5-5.1); SODIUM LEVEL 141 MEQ/L (136-145); TOTAL PROTEIN 7.9 GM/DL (6.4-8.2)
[2019-10-05 13:59] LABS: ERYTHROCYTE SEDIMENTATION RATE 2 mm/hr (0-15)
[2019-10-06 13:29] LABS: HEPATITIS B SURFACE ANTIGEN NEGATIVE (NEGATIVE)
[2019-10-06 13:39] LABS: HEPATITIS B CORE ANTIBODY IGM NEGATIVE (NEGATIVE); HEPATITIS C VIRUS ABY INDEX 0.1 INDEX (<0.8)
[2019-10-06 13:40] LABS: HIV 1&2 SCREEN CENTAUR NEGATIVE (NEGATIVE)
== END ==
LOC: M SFHCPLAZ 11:10
PROVIDERS: ATTEND Internal Medicine Infectious Disease
DX: R10.84 Generalized abdominal pain (principal); A04.8 Other specified bacterial intestinal infections

== ENCOUNTER → 2019-10-11 | Outpatient (REF) | payer OTHER | LOC: M SFHCPLAZ 10:51 | PROVIDERS: ATTEND Internal Medicine Infectious Disease | DX: A04.8 Other specified bacterial intestinal infections (principal) ==

== ENCOUNTER 2019-11-25 22:27 | Emergency (ER) | payer OTHER ==
[2019-11-25] MEDS ORDERED: ROBILIQ13 PO (22:33)
[2019-11-25] MEDS ORDERED: CLOT1CRE2 (23:42)
[2019-11-25] MEDS ORDERED: LANS30CA93 (23:42)
[2019-11-26] MEDS: ACETAMINOPHEN 325 MG TAB PO ONE (00:09)
[2019-11-26 00:29] LABS: INFLUENZA A AMPLIFICATION NEGATIVE (NEGATIVE); INFLUENZA B AMPLIFICATION NEGATIVE (NEGATIVE)
--- NOTE | 2019-11-26 01:28 | REP ---
Clinical: Shortness of breath . Comparison: 12/05/2018 . Technique: PA and lateral. Findings: The mediastinum and cardiac silhouette are normal. The lung olson are clear and without acute consolidation, effusion, or pneumothorax. The skeletal structures are intact and normal. Impression: 1. No acute cardiopulmonary process. Electronically Signed by Ravi Mojica MD 11/26/2019 01:19 A
[2019-11-26] MEDS ORDERED: NAPR-837 PO (01:41)
[2019-11-26] MEDS ORDERED: PROAAER10 INH (01:41)
[2019-11-26 01:43] VITALS: BP 121/82
[2019-11-27] MEDS ORDERED: ACET-897 PO (19:12)
[2019-11-27] MEDS ORDERED: OSEL75CA PO (19:12)
[2019-11-27] MEDS ORDERED: ONDA4TAB6 PO (22:50)
[2019-11-27] MEDS ORDERED: CARA1TAB6 PO (22:50)
== END 2019-11-26 01:48 | disposition home or self-care (01) ==
LOC: M ED 22:27
DX: J06.9 Acute upper respiratory infection, unspecified (principal); K21.9 Gastro-esophageal reflux disease without esophagitis; F41.9 Anxiety disorder, unspecified; F17.200 Nicotine dependence, unspecified, uncomplicated; Z79.899 Other long term (current) drug therapy; Z91.041 Radiographic dye allergy status

== ENCOUNTER 2019-11-27 18:54 | Emergency (ER) | payer OTHER ==
[~2019-11-27] VITALS: Ht 165.1 cm; Wt 74.2 kg
[~2019-11-27 18:54] MED LIST changes: +CLOT1CRE2; +LANS30CA93; +PROAAER10 INH; +ROBILIQ13 PO
[2019-11-27] MEDS ORDERED: OSEL75CA PO (19:12)
[2019-11-27] MEDS ORDERED: ACET-897 PO (19:12)
[2019-11-27] MEDS ORDERED: ACETAMINOPHEN 325 MG TAB PO ONE (20:15)
[2019-11-27] MEDS ORDERED: ONDANSETRON 4MG/2ML VIAL (J2405) IV ONE (20:15)
[2019-11-27] MEDS ORDERED: NS 1,000 ML IV ONE (20:15)
[2019-11-27 20:39] LABS: BASO % 0.2 % (0.0-1.0); EOS % 0.7 % (0.0-3.0); HEMATOCRIT 50.1 % (42.0-52.0); HEMOGLOBIN 16.7 g/dl (13.5-17.5); LYMPH # 0.7 10^3/uL (1.5-5.0); MEAN CORPUSCULAR HEMOGLOBIN 30.5 pg (27.0-33.0); MEAN CORPUSCULAR HGB CONC 33.3 g/dl (32.0-36.5); MEAN CORPUSCULAR VOLUME 91.4 fl (80.0-96.0); MONO # 0.7 10^3/uL (0.0-0.8); NEUTROPHILS # 2.8 10^3/uL (1.5-8.5); NEUTROPHILS % 66.9 % (36.0-66.0); RED BLOOD COUNT 5.48 10^6/uL (4.30-6.10); WHITE BLOOD COUNT 4.1 10^3/uL (4.0-10.0)
[2019-11-27] MEDS ORDERED: ISOVUE-370 76% 100ML VIAL (Q9967) As Ordered ONE (20:48)
[2019-11-27 21:10] LABS: ALT/SGPT 42 U/L (12-78); BILIRUBIN,DIRECT < 0.1 MG/DL (0.0-0.2); BILIRUBIN,TOTAL 0.3 MG/DL (0.2-1.0); LIPASE 66 U/L (73-393); TOTAL PROTEIN 8.2 GM/DL (6.4-8.2)
--- NOTE | 2019-11-27 21:57 | REPVR ---
PROCEDURE INFORMATION: Exam: CT Abdomen And Pelvis With Contrast Exam date and time: 11/27/2019 9:01 PM Age: 29 years old Clinical indication: Abdominal pain; Localized; Left lower quadrant (llq); Additional info: Llq pain TECHNIQUE: Imaging protocol: Computed tomography of the abdomen and pelvis with intravenous contrast. Radiation optimization: All CT scans at this facility use at least one of these dose optimization techniques: automated exposure control; mA and/or kV adjustment per patient size (includes targeted exams where dose is matched to clinical indication); or iterative reconstruction. Contrast material: ISOVUE 370; Contrast volume: 100 ml; Contrast route: IV; COMPARISON: CT ABD PELVIS W/O CONTRAST 04/09/2019 3:04 AM FINDINGS: Lungs: Clear appearing lung bases Heart: The heart is normal in size and there is no pericardial effusion. Liver: Normal. No mass. Gallbladder and bile ducts: Surgical clips at the gallbladder fossa and the patient is post cholecystectomy. Pancreas: Normal appearing pancreas. Normal appearing common bile duct. Spleen: Normal spleen. Adrenals: Normal adrenal glands. Kidneys and ureters: There is enhancement of both kidneys. There is no evidence of hydronephrosis. Stomach and bowel: The cecum is in the right pelvis. There is a large amount of secretions within the stomach and an air-fluid level. Appendix: No evidence of appendicitis. Intraperitoneal space: There is no evidence of pneumoperitoneum. There is no evidence of free fluid in the abdomen or the pelvis. Vasculature: There is opacification of the aorta which appears normal in size. There is opacification of the SMV and the SMA. Lymph nodes: There is no evidence of lymphadenopathy. Bladder: The the urinary bladder is empty. Reproductive: Unremarkable as visualized. Bones/joints: In there is no evidence of bony abnormality. Soft tissues: Unremarkable. IMPRESSION: Normal appearing abdominal CT. Electronically signed by: Joe Navarro On 11/27/2019 21:59:53 PM
[2019-11-27] MEDS ORDERED: ONDA4TAB6 PO (22:50)
[2019-11-27] MEDS ORDERED: CARA1TAB6 PO (22:50)
[2019-11-27 22:58] VITALS: BP 136/80
== END 2019-11-27 23:00 | disposition home or self-care (01) ==
LOC: M ED 18:54
DX: J10.1 Influenza due to other identified influenza virus with other respiratory manifestations (principal); K29.50 Unspecified chronic gastritis without bleeding; K21.9 Gastro-esophageal reflux disease without esophagitis; F41.9 Anxiety disorder, unspecified; F17.200 Nicotine dependence, unspecified, uncomplicated; Z79.899 Other long term (current) drug therapy; Z91.040 Latex allergy status
CPT/HCPCS: 74177; 80047; 80076; 81001; 83605; 83690; 85025; 87040; 87486; 87581; 87633; 87798; 96361; 96374; 99284; J2405; Q9967

== ENCOUNTER 2019-12-01 11:26 | Emergency (ER) | payer OTHER ==
[~2019-12-01] VITALS: Ht 165.1 cm; Wt 75.0 kg
[~2019-12-01 11:26] MED LIST changes: +ACET-897 PO; +ONDA4TAB6 PO; +OSEL75CA PO
[2019-12-01 11:36] VITALS: BP 128/82
[2019-12-01] MEDS ORDERED: NS 1,000 ML IV ONE (13:00)
[2019-12-01] MEDS ORDERED: GI COCKTAIL 50ML BTL(HYOSCYAMINE/MAALOX/LIDOCAINE VISCOUS)(1:3:1) PO ONE (13:00)
--- NOTE | 2019-12-01 13:27 | REP ---
PA and lateral chest: Comparison is 11/26/2019. The lung olson are clear. The cardiac size is normal. The ervin, mediastinum, and skeletal structures are unremarkable. Impression: Negative PA and lateral chest. There is no interval change. Electronically Signed by Abelardo Khan MD 12/01/2019 01:19 P
[2019-12-01] MEDS ORDERED: METOCLOPRAMIDE INJ 10MG/2ML VIAL (J2765) IV ONE (13:30)
[2019-12-01 13:36] LABS: HEMATOCRIT 49.9 % (42.0-52.0); HEMOGLOBIN 17.4 g/dl (13.5-17.5); MEAN CORPUSCULAR HEMOGLOBIN 31.2 pg (27.0-33.0); MEAN CORPUSCULAR HGB CONC 34.9 g/dl (32.0-36.5); MEAN CORPUSCULAR VOLUME 89.4 fl (80.0-96.0); PLATELET COUNT, AUTOMATED 136 10^3/uL (150-450); RED BLOOD COUNT 5.58 10^6/uL (4.30-6.10)
[2019-12-01 14:05] LABS: ALBUMIN 4.1 GM/DL (3.2-5.2); ALT/SGPT 123 U/L (12-78); BILIRUBIN,DIRECT 0.2 MG/DL (0.0-0.2); BILIRUBIN,TOTAL 0.5 MG/DL (0.2-1.0); CK-MB VALUE MASS < 1.0 NG/ML (<3.6); CPK CREATINE PHOSPHOKINASE 644 U/L (39-308); LIPASE 118 U/L (73-393); MB/CK RELATIVE INDEX 0.16 (< OR =4); TOTAL PROTEIN 8.1 GM/DL (6.4-8.2); TROPONIN I < 0.02 NG/ML (< 0.10)
[2019-12-01 14:34] LABS: INFLUENZA A AMPLIFICATION NEGATIVE (NEGATIVE); INFLUENZA B AMPLIFICATION POSITIVE (NEGATIVE)
[2019-12-01 14:44] LABS: ATYPICAL LYMPH 4 % (0-5); LYMPHOCYTES 38 % (16-44); MONOCYTES 18 % (0-5); NEUTROPHILS 40 % (28-66); PLATELET ESTIMATE DECREASED (NORMAL)
[2019-12-01 14:45] LABS: ANISOCYTOSIS 1+
[2019-12-01] MEDS ORDERED: DICYCLOMINE 10 MG CAP PO ONE (14:45)
--- NOTE | 2019-12-01 15:05 | ECGEPIP ---
[facility] - ED Test Date: 2019-12-01 Pat Name: MARE CAMPBELL Department: Room: - Gender: Male Dive Supervisor: NAM : 1990 Requested By: LINCOLN Kinsey PA-C Order Number: [id number] Reading MD: Stephanie Snyder Measurements Intervals [place] Rate: 73 P: 76 [place]: 131 QRS: 58 QRSD: 90 T: 39 QT: 375 QTc: 415 Interpretive Statements SINUS RHYTHM VOLTAGE CRITERIA FOR LVH DECREASED RATE 09/24/18 Electronically Signed on 12-01-2019 15:05:52 EST by Stephanie Snyder
[2019-12-01] MEDS ORDERED: REGL10TA6 PO (15:24)
[2019-12-01] MEDS ORDERED: DICY10CA13 PO (15:24)
== END 2019-12-01 15:36 | disposition home or self-care (01) ==
LOC: M ED 11:26 → EDBD 11:26 → M ED 15:36
DX: J10.1 Influenza due to other identified influenza virus with other respiratory manifestations (principal); R11.2 Nausea with vomiting, unspecified; G89.29 Other chronic pain; R10.9 Unspecified abdominal pain; R55 Syncope and collapse; F17.200 Nicotine dependence, unspecified, uncomplicated; Z79.899 Other long term (current) drug therapy; Z91.040 Latex allergy status
CPT/HCPCS: 71046; 80047; 80076; 81001; 82550; 82553; 83690; 85025; 87502; 93005; 96361; 96374; 99284; J2765

== ENCOUNTER 2020-01-25 06:07 | Emergency (ER) | payer MEDICAID, OTHER, SELFPAY ==
[~2020-01-25] VITALS: Ht 165.1 cm; Wt 75.4 kg
[~2020-01-25 06:07] MED LIST changes: -CLAR500T; -CLAR500T PO; +CLAR500T97; +CLAR500T97 PO; +DICY10CA13 PO; +REGL10TA6 PO
[2020-01-25] MEDS ORDERED: ONDANSETRON 4 MG ORAL DISINTEGRATING TAB (Q0162 PER 1MG) PO ONE (07:00)
[2020-01-25 07:37] LABS: BASO % 0.3 % (0.0-1.0); EOS # 0.1 10^3/uL (0.0-0.5); EOS % 0.8 % (0.0-3.0); HEMATOCRIT 48.9 % (42.0-52.0); HEMOGLOBIN 16.9 g/dl (13.5-17.5); LYMPH # 1.3 10^3/uL (1.5-5.0); LYMPH % 19.8 % (24.0-44.0); MEAN CORPUSCULAR HEMOGLOBIN 31.4 pg (27.0-33.0); MEAN CORPUSCULAR HGB CONC 34.6 g/dl (32.0-36.5); MEAN CORPUSCULAR VOLUME 90.7 fl (80.0-96.0); MONO # 0.6 10^3/uL (0.0-0.8); MONO % 8.6 % (0.0-5.0); NEUTROPHILS # 4.5 10^3/uL (1.5-8.5); NEUTROPHILS % 70.3 % (36.0-66.0); PLATELET COUNT, AUTOMATED 200 10^3/uL (150-450); RED BLOOD COUNT 5.39 10^6/uL (4.30-6.10); WHITE BLOOD COUNT 6.4 10^3/uL (4.0-10.0)
[2020-01-25 08:06] LABS: ALBUMIN 4.1 GM/DL (3.2-5.2); ALT/SGPT 26 U/L (12-78); BILIRUBIN,DIRECT 0.1 MG/DL (0.0-0.2); BILIRUBIN,TOTAL 0.5 MG/DL (0.2-1.0); BLOOD UREA NITROGEN 9 MG/DL (7-18); CALCIUM LEVEL 9.4 MG/DL (8.5-10.1); CARBON DIOXIDE LEVEL 28 MEQ/L (21-32); CHLORIDE LEVEL 106 MEQ/L (98-107); CREATININE FOR GFR 1.01 MG/DL (0.70-1.30); GLOMERULAR FILTRATION RATE > 60.0 (>60); GLUCOSE, FASTING 92 MG/DL (70-100); LIPASE 84 U/L (73-393); SODIUM LEVEL 138 MEQ/L (136-145); TOTAL PROTEIN 7.8 GM/DL (6.4-8.2)
[2020-01-25 08:44] VITALS: BP 126/86
[2020-01-25] MEDS ORDERED: ONDA4TAB6 PO (08:47)
== END 2020-01-25 09:01 | disposition home or self-care (01) ==
LOC: M ED 06:07
DX: R11.2 Nausea with vomiting, unspecified (principal); R19.7 Diarrhea, unspecified; F17.200 Nicotine dependence, unspecified, uncomplicated; Z79.899 Other long term (current) drug therapy; Z91.040 Latex allergy status
CPT/HCPCS: 80048; 80076; 83690; 85025; 87507; 99283; Q0162

== ENCOUNTER 2020-01-28 12:59 | Emergency (ER) | payer MEDICAID, SELFPAY ==
[~2020-01-28] VITALS: Ht 167.6 cm; Wt 70.9 kg
[2020-01-28] MEDS ORDERED: VANC125C3 PO (13:39)
--- NOTE | 2020-01-28 14:05 | REP ---
Chest x-ray: Two views. History: Chest pain. Comparison study: December 01, 2019 . Findings: The lungs are well inflated and free of infiltrate. The pleural angles are sharp. The heart size is normal. Pulmonary vasculature is not increased. No significant bony abnormality is seen. Monitoring electrodes are seen. There are clips in the right upper quadrant of the abdomen. Impression: Negative chest x-ray. Electronically Signed by Damien Raphael MD 01/28/2020 01:57 P
--- NOTE | 2020-01-28 14:33 | ECGEPIP ---
[facility] - ED Test Date: 2020-01-28 Pat Name: MARE CAMPBELL Department: Room: - Gender: Male Reservations Sales Supervisor: Gustabo CHAVEZ : 1990 Requested By: BRICE Akers Order Number: [id number] Reading MD: Harpreet Moreno Measurements Intervals [place] Rate: 77 P: 65 [place]: 144 QRS: 24 QRSD: 90 T: 21 QT: 365 QTc: 415 Interpretive Statements SINUS RHYTHM WITH SINUS ARRHYTHMIA BENIGN EARLY REPOLARIZATION SIMILAR TO 12/01/19 Electronically Signed on 01-28-2020 14:33:39 EDT by Harpreet Moreno
[2020-01-28 14:50] LABS: BASO % 0.3 % (0.0-1.0); EOS % 0.3 % (0.0-3.0); HEMATOCRIT 46.7 % (42.0-52.0); LYMPH # 0.7 10^3/uL (1.5-5.0); LYMPH % 9.3 % (24.0-44.0); MEAN CORPUSCULAR HEMOGLOBIN 31.3 pg (27.0-33.0); MEAN CORPUSCULAR HGB CONC 34.3 g/dl (32.0-36.5); MEAN CORPUSCULAR VOLUME 91.2 fl (80.0-96.0); MONO # 0.4 10^3/uL (0.0-0.8); MONO % 5.2 % (0.0-5.0); NEUTROPHILS # 5.9 10^3/uL (1.5-8.5); NEUTROPHILS % 84.8 % (36.0-66.0); PLATELET COUNT, AUTOMATED 186 10^3/uL (150-450); RED BLOOD COUNT 5.12 10^6/uL (4.30-6.10)
[2020-01-28 15:03] LABS: INR 1.19; PROTHROMBIN TIME 14.8 SECONDS (11.8-14.0)
[2020-01-28 15:09] LABS: D-DIMER QUANT < 270 ng/ml (<500)
[2020-01-28 15:27] LABS: ALBUMIN 4.3 GM/DL (3.2-5.2); ALT/SGPT 24 U/L (12-78); BILIRUBIN,DIRECT 0.1 MG/DL (0.0-0.2); BILIRUBIN,TOTAL 0.4 MG/DL (0.2-1.0); BLOOD UREA NITROGEN 7 MG/DL (7-18); CALCIUM LEVEL 9.8 MG/DL (8.5-10.1); CARBON DIOXIDE LEVEL 28 MEQ/L (21-32); CHLORIDE LEVEL 106 MEQ/L (98-107); CK-MB VALUE MASS < 1.0 NG/ML (<3.6); CPK CREATINE PHOSPHOKINASE 169 U/L (39-308); CREATININE FOR GFR 1.05 MG/DL (0.70-1.30); FREE T4 1.06 NG/DL (0.76-1.46); GLOMERULAR FILTRATION RATE > 60.0 (>60); GLUCOSE, FASTING 87 MG/DL (70-100); LIPASE 91 U/L (73-393); MB/CK RELATIVE INDEX 0.59 (< OR =4); POTASSIUM SERUM 3.8 MEQ/L (3.5-5.1); SODIUM LEVEL 138 MEQ/L (136-145); THYROID STIMULATING HORMONE 0.358 uIU/ML (0.358-3.740); TROPONIN I < 0.02 NG/ML (< 0.10)
[2020-01-28 17:31] VITALS: BP 109/59
--- NOTE | 2020-01-31 08:31 | ED PDOC ---
Post-Departure Follow-Up The patient's called the ED and stated he was having abdominal bloating and gas, that he could not tolerate the vancomycin prescribed for C. Diff. On review of his EMR, his stool sample submitted for testing was again formed, as in 2018, at which time Dr. 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 He has been advised to discontinue his vancomycin Harpreet Moreno M.D. Jan 31, 2020 08:31
== END 2020-01-28 17:34 | disposition home or self-care (01) ==
LOC: M ED 12:59 → EDBD 12:59 → M ED 17:34
DX: F41.9 Anxiety disorder, unspecified (principal); R07.89 Other chest pain; A04.72 Enterocolitis due to Clostridium difficile, not specified as recurrent; F17.200 Nicotine dependence, unspecified, uncomplicated; F12.10 Cannabis abuse, uncomplicated; Z91.041 Radiographic dye allergy status

== ENCOUNTER → 2020-02-07 | Outpatient (CLI) | payer MEDICAID ==
[~2020-02-07] MED LIST changes: +CYCL-707 PO; -CYCL10TA PO; +VANC125C3 PO
--- NOTE | 2020-02-07 17:21 | REP ---
REASON: Chest pain. COMPARISON: Multiple priors. FINDINGS: The superior mediastinal structures are midline. The cardiac silhouette is unremarkable in size, shape, and position. The diaphragmatic surfaces of the lungs are regular, and the costophrenic angles are clear. The pulmonary olson are clear. The imaged osseous structures are intact. IMPRESSION: There is no acute cardiopulmonary disease. No change from multiple priors. Electronically Signed by Tanner Quiñones DO 02/08/2020 10:54 A
== END ==
LOC: M RAD 15:46
PROVIDERS: ATTEND Physician Assistant Medical
DX: R07.9 Chest pain, unspecified (principal)

== ENCOUNTER → 2020-02-23 | Outpatient (CLI) | payer MEDICAID, OTHER ==
[2020-02-23 13:12] LABS: ALBUMIN 4.4 GM/DL (3.2-5.2); BILIRUBIN,DIRECT 0.1 MG/DL (0.0-0.2); BILIRUBIN,TOTAL 0.2 MG/DL (0.2-1.0)
[2020-02-25 08:06] LABS: IGASUB2 94.3 mg/dL (73.2-301.2); IGASUB3 25.8 mg/dL (13.4-97.9); IgA SERUM (part of Subclasses) 125 mg/dL (90-386); TISSUE TRANSGLUTAMINASE IgA <2 U/mL (0-3)
== END ==
LOC: M LAB 11:52
PROVIDERS: ATTEND Internal Medicine Gastroenterology
DX: R19.7 Diarrhea, unspecified (principal); R10.13 Epigastric pain

== ENCOUNTER → 2020-02-24 | Outpatient (REF) | payer MEDICAID ==
[2020-02-24 14:00] LABS: CLOSTRIDIUM DIFFICILE PCR POSITIVE (NEGATIVE)
== END ==
LOC: M LAB REF 12:04
PROVIDERS: ATTEND Internal Medicine Gastroenterology
DX: R19.7 Diarrhea, unspecified (principal)

== ENCOUNTER 2020-03-05 12:29 | Emergency (ER) | payer MEDICAID ==
[~2020-03-05] VITALS: Ht 165.1 cm; Wt 74.1 kg
[2020-03-05] MEDS ORDERED: DIFI200T (12:38)
[2020-03-05] MEDS ORDERED: HYDR-3363 (12:40)
[2020-03-05] MEDS ORDERED: [UNRECOGNIZED DRUG - OTHER] PO (12:40)
[2020-03-05 13:45] LABS: BASO % 0.6 % (0.0-1.0); EOS # 0.1 10^3/uL (0.0-0.5); EOS % 1.1 % (0.0-3.0); HEMATOCRIT 47.2 % (42.0-52.0); HEMOGLOBIN 16.2 g/dl (13.5-17.5); LYMPH # 1.2 10^3/uL (1.5-5.0); LYMPH % 25.7 % (24.0-44.0); MEAN CORPUSCULAR HEMOGLOBIN 31.5 pg (27.0-33.0); MEAN CORPUSCULAR HGB CONC 34.3 g/dl (32.0-36.5); MEAN CORPUSCULAR VOLUME 91.7 fl (80.0-96.0); MONO # 0.4 10^3/uL (0.0-0.8); MONO % 9.2 % (0.0-5.0); NEUTROPHILS % 63.2 % (36.0-66.0); PLATELET COUNT, AUTOMATED 208 10^3/uL (150-450); RED BLOOD COUNT 5.15 10^6/uL (4.30-6.10); WHITE BLOOD COUNT 4.7 10^3/uL (4.0-10.0)
--- NOTE | 2020-03-05 13:57 | REP ---
TWO-VIEW CHEST: REASON FOR EXAM: Chest pain. COMPARISON: No priors. FINDINGS: The superior mediastinal structures are midline. The cardiac silhouette is unremarkable in size, shape, and position. The diaphragmatic surfaces of the lungs are regular, and the costophrenic angles are clear. The pulmonary olson are clear. The imaged osseous structures are intact. IMPRESSION: There is no acute cardiopulmonary disease. Electronically Signed by Tanner Quiñones DO 03/05/2020 02:13 P
[2020-03-05 14:04] LABS: BLOOD UREA NITROGEN 6 MG/DL (7-18); CALCIUM LEVEL 9.1 MG/DL (8.5-10.1); CARBON DIOXIDE LEVEL 30 MEQ/L (21-32); CHLORIDE LEVEL 105 MEQ/L (98-107); CK-MB VALUE MASS < 1.0 NG/ML (<3.6); CPK CREATINE PHOSPHOKINASE 112 U/L (39-308); CREATININE FOR GFR 1.04 MG/DL (0.70-1.30); GLOMERULAR FILTRATION RATE > 60.0 (>60); GLUCOSE, FASTING 103 MG/DL (70-100); MB/CK RELATIVE INDEX 0.89 (< OR =4); POTASSIUM SERUM 4.2 MEQ/L (3.5-5.1); SODIUM LEVEL 140 MEQ/L (136-145); TROPONIN I < 0.02 NG/ML (< 0.10)
[2020-03-05 14:43] VITALS: BP 140/93
--- NOTE | 2020-03-06 16:40 | ECGEPIP ---
[facility] - ED Test Date: 2020-03-05 Pat Name: MARE CAMPBELL Department: Room: - Gender: Male Legal Support Assistant: CAMMY : 1990 Requested By: Harpreet Kinsey Order Number: [id number] Reading MD: Stephanie Snyder Measurements Intervals [place] Rate: 79 P: 68 [place]: 152 QRS: 53 QRSD: 90 T: 39 QT: 350 QTc: 402 Interpretive Statements SINUS RHYTHM MODERATE VOLTAGE CRITERIA FOR LVH, CONSIDER NORMAL VARIANT EARLY REPOLARIZATION SIMILAR 01/28/20 Electronically Signed on 03-06-2020 16:39:59 EDT by Stephanie Snyder
== END 2020-03-05 14:50 | disposition home or self-care (01) ==
LOC: M ED 12:29
DX: R07.89 Other chest pain (principal); A04.72 Enterocolitis due to Clostridium difficile, not specified as recurrent; K21.9 Gastro-esophageal reflux disease without esophagitis; F41.9 Anxiety disorder, unspecified; F17.200 Nicotine dependence, unspecified, uncomplicated; Z91.041 Radiographic dye allergy status; Z79.899 Other long term (current) drug therapy

== ENCOUNTER → 2020-03-08 | Outpatient (CLI) | payer MEDICAID ==
[~2020-03-08] MED LIST changes: +DIFI200T; +HYDR-3363; +[UNRECOGNIZED DRUG - OTHER] PO
[2020-03-08 11:26] LABS: CHOLESTEROL RISK RATIO 1.945 (<5)
== END ==
LOC: M LAB 10:05
PROVIDERS: ATTEND Internal Medicine Cardiovascular Disease
DX: R94.31 Abnormal electrocardiogram [ECG] [EKG] (principal); R07.9 Chest pain, unspecified

== ENCOUNTER 2020-03-12 23:28 | Emergency (ER) | payer MEDICAID ==
[~2020-03-12] VITALS: Ht 165.1 cm; Wt 75.9 kg
[~2020-03-12 23:28] MED LIST changes: -CLOT1CRE2; +CLOT1CRE56
[2020-03-13 02:22] LABS: BASO % 0.4 % (0.0-1.0); EOS # 0.2 10^3/uL (0.0-0.5); EOS % 2.5 % (0.0-3.0); HEMATOCRIT 45.7 % (42.0-52.0); HEMOGLOBIN 15.3 g/dl (13.5-17.5); LYMPH # 2.2 10^3/uL (1.5-5.0); LYMPH % 30.2 % (24.0-44.0); MEAN CORPUSCULAR HEMOGLOBIN 30.9 pg (27.0-33.0); MEAN CORPUSCULAR HGB CONC 33.5 g/dl (32.0-36.5); MEAN CORPUSCULAR VOLUME 92.3 fl (80.0-96.0); MONO # 0.8 10^3/uL (0.0-0.8); MONO % 10.9 % (0.0-5.0); NEUTROPHILS % 55.7 % (36.0-66.0); PLATELET COUNT, AUTOMATED 205 10^3/uL (150-450); RED BLOOD COUNT 4.95 10^6/uL (4.30-6.10); WHITE BLOOD COUNT 7.1 10^3/uL (4.0-10.0)
[2020-03-13] MEDS ORDERED: ISOVUE-370 76% 100ML VIAL As Ordered ONE (02:27)
[2020-03-13 02:49] LABS: ALBUMIN 3.6 GM/DL (3.2-5.2); ALT/SGPT 38 U/L (12-78); BILIRUBIN,DIRECT < 0.1 MG/DL (0.0-0.2); BILIRUBIN,TOTAL 0.2 MG/DL (0.2-1.0); BLOOD UREA NITROGEN 7 MG/DL (7-18); CALCIUM LEVEL 8.8 MG/DL (8.5-10.1); CARBON DIOXIDE LEVEL 29 MEQ/L (21-32); CHLORIDE LEVEL 107 MEQ/L (98-107); CREATININE FOR GFR 0.98 MG/DL (0.70-1.30); GLOMERULAR FILTRATION RATE > 60.0 (>60); GLUCOSE, FASTING 106 MG/DL (70-100); LIPASE 111 U/L (73-393); SODIUM LEVEL 142 MEQ/L (136-145); TOTAL PROTEIN 7.4 GM/DL (6.4-8.2)
[2020-03-13 03:08] LABS: APPEARANCE, URINE CLEAR (CLEAR); BACTERIA, URINE AUTO NEGATIVE (NEGATIVE); BILIRUBIN, URINE AUTO NEGATIVE (NEGATIVE); BLOOD, URINE BLOOD NEGATIVE (NEGATIVE); COLOR, URINE YELLOW (YELLOW); GLUCOSE, URINE (UA) AUTO NEGATIVE (NEGATIVE); KETONE, URINE AUTO NEGATIVE (NEGATIVE); LEUKOCYTE ESTERASE, URINE AUTO NEGATIVE (NEGATIVE); NITRITE, URINE AUTO NEGATIVE (NEGATIVE); PROTEIN, URINE AUTO NEGATIVE (NEGATIVE); RBC, URINE AUTO 1 /HPF (0-3); SPECIFIC GRAVITY URINE AUTO 1.008 (1.002-1.035); SQUAMOUS EPITHELIAL CELL UR AU 0 /HPF (0-6); UROBILINOGEN, URINE AUTO 0.2 mg/dL (0.0-2.0); WBC, URINE AUTO 0 /HPF (0-3)
[2020-03-13 04:53] VITALS: BP 121/59
--- NOTE | 2020-03-13 13:00 | REP ---
CT ABDOMEN AND PELVIS WITH IV CONTRAST: REPEAT DICTATION. Left-sided pain. Preliminary report is provided at the time of the exam by [employer]. Comparison CT study, November 27, 2019. CT CONTRAST DOSE: 100 mL of intravenous Isovue [address] FINDINGS: Preliminary digital taste tester radiograph demonstrates surgical clips in the right upper quadrant post cholecystectomy. Normal bowel gas pattern. The lung bases are clear on axial CT images. The liver and the spleen are normal in size, homogeneous in texture. No adrenal lesion is seen. No abnormality is noted in the pancreas. The gallbladder is surgically absent. The kidneys enhance symmetrically and are morphologically intact. There is no evidence of ascites or abnormal intra-abdominal fluid collection. There are one or two surgical clips in the right lower quadrant post appendectomy. Seminal vesicles, prostate, and urinary bladder are unremarkable. No abdominal wall defect is seen. Small and large intestinal bowel loops are unremarkable in the abdomen and pelvis. IMPRESSION: Post appendectomy and cholecystectomy. No acute intra-abdominal abnormality. Electronically Signed by Damien Raphael MD 03/13/2020 04:56 P
== END 2020-03-13 04:53 | disposition home or self-care (01) ==
LOC: M ED 23:28
DX: R10.9 Unspecified abdominal pain (principal); G89.29 Other chronic pain; L25.9 Unspecified contact dermatitis, unspecified cause; Z87.19 Personal history of other diseases of the digestive system; F17.200 Nicotine dependence, unspecified, uncomplicated
CPT/HCPCS: 36415; 74177; 80048; 80076; 81001; 83690; 85025; 99284; Q9967

== ENCOUNTER → 2020-03-27 | Outpatient (REF) | payer MEDICAID, OTHER | LOC: M LAB 19:48 | PROVIDERS: ATTEND Physician Assistant Medical | DX: J02.9 Acute pharyngitis, unspecified (principal) ==

== ENCOUNTER 2020-04-01 18:13 | Emergency (ER) | payer MEDICAID, OTHER ==
[~2020-04-01] VITALS: Ht 167.6 cm; Wt 76.1 kg
[2020-04-01 19:06] LABS: BASO % 0.5 % (0.0-1.0); EOS # 0.2 10^3/uL (0.0-0.5); EOS % 2.7 % (0.0-3.0); HEMATOCRIT 46.5 % (42.0-52.0); HEMOGLOBIN 15.9 g/dl (13.5-17.5); LYMPH # 2.2 10^3/uL (1.5-5.0); LYMPH % 37.3 % (24.0-44.0); MEAN CORPUSCULAR HEMOGLOBIN 31.4 pg (27.0-33.0); MEAN CORPUSCULAR HGB CONC 34.2 g/dl (32.0-36.5); MEAN CORPUSCULAR VOLUME 91.9 fl (80.0-96.0); MONO # 0.7 10^3/uL (0.0-0.8); MONO % 11.2 % (0.0-5.0); NEUTROPHILS # 2.9 10^3/uL (1.5-8.5); NEUTROPHILS % 48.3 % (36.0-66.0); PLATELET COUNT, AUTOMATED 190 10^3/uL (150-450); RED BLOOD COUNT 5.06 10^6/uL (4.30-6.10)
[2020-04-01 19:32] LABS: ALT/SGPT 44 U/L (12-78); BILIRUBIN,DIRECT 0.1 MG/DL (0.0-0.2); BILIRUBIN,TOTAL 0.3 MG/DL (0.2-1.0); LIPASE 74 U/L (73-393); MONO REFLEX EBV COMP NEGATIVE (NEGATIVE); TOTAL PROTEIN 7.8 GM/DL (6.4-8.2)
[2020-04-01 19:57] VITALS: BP 136/92
[2020-04-04 14:08] LABS: EBV VIRAL CAPSID AG IgM <36.0 U/mL (0.0-35.9)
== END 2020-04-01 19:59 | disposition home or self-care (01) ==
LOC: M ED 18:13
DX: R10.13 Epigastric pain (principal); R07.0 Pain in throat; F17.218 Nicotine dependence, cigarettes, with other nicotine-induced disorders; Z91.041 Radiographic dye allergy status; K21.9 Gastro-esophageal reflux disease without esophagitis

== ENCOUNTER 2020-04-15 18:57 | Emergency (ER) | payer OTHER ==
[~2020-04-15] VITALS: Ht 167.6 cm; Wt 75.0 kg
[2020-04-15] MEDS ORDERED: ANUSOL HC CREAM 30GM TOP STA (19:28)
[2020-04-15] MEDS ORDERED: OLOPATADINE 0.1% OPHTH SOL 5ML(PATANOL) OU STA (19:36)
[2020-04-15] MEDS ORDERED: DOCUSATE SODIUM 100 MG CAP PO ONE (20:30)
[2020-04-15] MEDS ORDERED: COLA100C5 PO (20:34)
[2020-04-15] MEDS ORDERED: OLOP0.1D OP (20:34)
[2020-04-15] MEDS ORDERED: ANUS25SU PR (20:34)
[2020-04-15] MEDS ORDERED: QC A650T3 PO (20:34)
[2020-04-15 20:41] VITALS: BP 142/82
--- NOTE | 2020-04-16 08:48 | REP ---
KUB: Single view. History: Constipation. Comparison films are from June 16, 2010. Findings: There are clips in right upper quadrant of the abdomen consistent with an interval cholecystectomy. Flank stripes and psoas margins are intact. No mass, organomegaly, or pathologic calcification is seen. There are pelvic phleboliths again noted. There is a mild dextroconvex curvature is seen in the lumbar spine. Impression: Post cholecystectomy. Otherwise unremarkable KUB. Normal bowel gas pattern. No evidence of fecal retention. Electronically Signed by Damien Raphael MD 04/16/2020 08:38 A
== END 2020-04-15 20:44 | disposition home or self-care (01) ==
LOC: M ED 18:57
DX: K64.8 Other hemorrhoids (principal); F17.200 Nicotine dependence, unspecified, uncomplicated; K60.2 Anal fissure, unspecified; F41.9 Anxiety disorder, unspecified; H10.13 Acute atopic conjunctivitis, bilateral; Z91.041 Radiographic dye allergy status

== ENCOUNTER → 2020-04-18 | Outpatient (REF) | payer OTHER ==
[~2020-04-18] MED LIST changes: +ANUS25SU PR; +COLA100C5 PO; +HYDR50TA70; +OLOP0.1D OP; +QC A650T3 PO
[2020-04-18 16:10] LABS: BASO % 0.7 % (0.0-1.0); EOS # 0.1 10^3/uL (0.0-0.5); EOS % 2.1 % (0.0-3.0); HEMATOCRIT 50.7 % (42.0-52.0); HEMOGLOBIN 16.9 g/dl (13.5-17.5); LYMPH # 1.3 10^3/uL (1.5-5.0); LYMPH % 30.6 % (24.0-44.0); MEAN CORPUSCULAR HEMOGLOBIN 31.1 pg (27.0-33.0); MEAN CORPUSCULAR HGB CONC 33.3 g/dl (32.0-36.5); MEAN CORPUSCULAR VOLUME 93.2 fl (80.0-96.0); MONO # 0.4 10^3/uL (0.0-0.8); MONO % 9.5 % (0.0-5.0); NEUTROPHILS # 2.4 10^3/uL (1.5-8.5); NEUTROPHILS % 57.1 % (36.0-66.0); PLATELET COUNT, AUTOMATED 210 10^3/uL (150-450); RED BLOOD COUNT 5.44 10^6/uL (4.30-6.10); WHITE BLOOD COUNT 4.2 10^3/uL (4.0-10.0)
[2020-04-18 16:37] LABS: ALBUMIN 4.1 GM/DL (3.2-5.2); ALT/SGPT 29 U/L (12-78); BILIRUBIN,TOTAL 0.4 MG/DL (0.2-1.0); BLOOD UREA NITROGEN 7 MG/DL (7-18); CALCIUM LEVEL 9.5 MG/DL (8.5-10.1); CARBON DIOXIDE LEVEL 28 MEQ/L (21-32); CHLORIDE LEVEL 105 MEQ/L (98-107); CHOLESTEROL LEVEL 128 MG/DL (<200); CHOLESTEROL RISK RATIO 1.828 (<5); CREATININE FOR GFR 1.05 MG/DL (0.70-1.30); FREE T4 0.98 NG/DL (0.76-1.46); GLOMERULAR FILTRATION RATE > 60.0 (>60); GLUCOSE, FASTING 88 MG/DL (70-100); HDL CHOLESTEROL 70 MG/DL (>40); LDL CHOLESTEROL 45 MG/DL (<100); NON-HDL-C 58 MG/DL; POTASSIUM SERUM 4.9 MEQ/L (3.5-5.1); SODIUM LEVEL 138 MEQ/L (136-145); THYROID STIMULATING HORMONE 0.383 uIU/ML (0.358-3.740); TOTAL PROTEIN 8.2 GM/DL (6.4-8.2); TRIGLYCERIDES LEVEL 63 MG/DL (<150)
== END ==
LOC: M LAB REF 13:32
PROVIDERS: ATTEND Nurse Practitioner Family
DX: F41.9 Anxiety disorder, unspecified (principal); F32.9 Major depressive disorder, single episode, unspecified; R14.0 Abdominal distension (gaseous); R11.2 Nausea with vomiting, unspecified; F17.200 Nicotine dependence, unspecified, uncomplicated; Z13.9 Encounter for screening, unspecified; R00.2 Palpitations

== ENCOUNTER 2020-04-20 16:23 | Emergency (ER) | payer OTHER ==
[~2020-04-20] VITALS: Ht 165.1 cm; Wt 75.5 kg
[2020-04-20 16:23] VITALS: BP 154/94
[~2020-04-20 16:23] MED LIST changes: -HYDR50TA70
[2020-04-20] MEDS ORDERED: HYDR50TA70 (17:45)
== END 2020-04-20 16:50 | disposition left against medical advice (07) ==
LOC: M ED 16:23
DX: Z53.21 Procedure and treatment not carried out due to patient leaving prior to being seen by health care provider (principal)

== ENCOUNTER 2020-04-20 17:41 | Emergency (ER) | payer OTHER ==
[~2020-04-20] VITALS: Ht 165.1 cm; Wt 75.5 kg
[2020-04-20] MEDS ORDERED: HYDR50TA70 (17:45)
[2020-04-20 19:14] LABS: APPEARANCE, URINE CLEAR (CLEAR); BACTERIA, URINE AUTO NEGATIVE (NEGATIVE); BILIRUBIN, URINE AUTO NEGATIVE (NEGATIVE); BLOOD, URINE BLOOD NEGATIVE (NEGATIVE); COLOR, URINE COLORLESS (YELLOW); GLUCOSE, URINE (UA) AUTO NEGATIVE (NEGATIVE); KETONE, URINE AUTO NEGATIVE (NEGATIVE); LEUKOCYTE ESTERASE, URINE AUTO NEGATIVE (NEGATIVE); NITRITE, URINE AUTO NEGATIVE (NEGATIVE); PROTEIN, URINE AUTO NEGATIVE (NEGATIVE); RBC, URINE AUTO 1 /HPF (0-3); SPECIFIC GRAVITY URINE AUTO 1.002 (1.002-1.035); SQUAMOUS EPITHELIAL CELL UR AU 0 /HPF (0-6); UROBILINOGEN, URINE AUTO 0.2 mg/dL (0.0-2.0); WBC, URINE AUTO 0 /HPF (0-3)
[2020-04-20 19:23] LABS: BASO % 0.4 % (0.0-1.0); EOS # 0.1 10^3/uL (0.0-0.5); EOS % 1.4 % (0.0-3.0); HEMATOCRIT 50.2 % (42.0-52.0); HEMOGLOBIN 16.8 g/dl (13.5-17.5); LYMPH # 1.8 10^3/uL (1.5-5.0); LYMPH % 32.4 % (24.0-44.0); MEAN CORPUSCULAR HEMOGLOBIN 30.8 pg (27.0-33.0); MEAN CORPUSCULAR HGB CONC 33.5 g/dl (32.0-36.5); MEAN CORPUSCULAR VOLUME 91.9 fl (80.0-96.0); MONO # 0.5 10^3/uL (0.0-0.8); MONO % 7.9 % (0.0-5.0); NEUTROPHILS # 3.3 10^3/uL (1.5-8.5); NEUTROPHILS % 57.9 % (36.0-66.0); PLATELET COUNT, AUTOMATED 235 10^3/uL (150-450); RED BLOOD COUNT 5.46 10^6/uL (4.30-6.10); WHITE BLOOD COUNT 5.7 10^3/uL (4.0-10.0)
[2020-04-20 19:45] VITALS: BP 146/87
== END 2020-04-20 19:46 | disposition home or self-care (01) ==
LOC: M ED 17:41
DX: R04.0 Epistaxis (principal); Z79.899 Other long term (current) drug therapy; Z91.040 Latex allergy status

== ENCOUNTER 2020-05-01 20:48 | Emergency (ER) | payer OTHER ==
[~2020-05-01] VITALS: Ht 165.1 cm; Wt 75.8 kg
[~2020-05-01 20:48] MED LIST changes: -AZEL1SPR3 NARES; -CETI10TA4 PO; -COLD30LI PO; -ROBA750T4 PO
[2020-05-02 00:29] LABS: BASO % 0.6 % (0.0-1.0); EOS # 0.2 10^3/uL (0.0-0.5); EOS % 3.3 % (0.0-3.0); HEMATOCRIT 50.8 % (42.0-52.0); HEMOGLOBIN 17.1 g/dl (13.5-17.5); LYMPH # 2.1 10^3/uL (1.5-5.0); LYMPH % 40.6 % (24.0-44.0); MEAN CORPUSCULAR HEMOGLOBIN 30.8 pg (27.0-33.0); MEAN CORPUSCULAR HGB CONC 33.7 g/dl (32.0-36.5); MEAN CORPUSCULAR VOLUME 91.4 fl (80.0-96.0); MONO # 0.4 10^3/uL (0.0-0.8); MONO % 8.1 % (0.0-5.0); NEUTROPHILS # 2.4 10^3/uL (1.5-8.5); NEUTROPHILS % 47.2 % (36.0-66.0); PLATELET COUNT, AUTOMATED 219 10^3/uL (150-450); RED BLOOD COUNT 5.56 10^6/uL (4.30-6.10); WHITE BLOOD COUNT 5.1 10^3/uL (4.0-10.0)
[2020-05-02 00:54] LABS: C REACTIVE PROTEIN QUANTITATIV < 0.30 MG/DL (0.00-0.30); CK-MB VALUE MASS < 1.0 NG/ML (<3.6); CPK CREATINE PHOSPHOKINASE 109 U/L (39-308); MB/CK RELATIVE INDEX 0.92 (< OR =4); TROPONIN I < 0.02 NG/ML (< 0.10)
[2020-05-02 00:55] LABS: ERYTHROCYTE SEDIMENTATION RATE 2 mm/hr (0-15)
[2020-05-02] MEDS ORDERED: ACETAMINOPHEN 500 MG TAB PO ONE (01:30)
[2020-05-02 01:39] VITALS: BP 146/88
--- NOTE | 2020-05-02 08:22 | ECGEPIP ---
[facility] - ED Test Date: 2020-05-01 Pat Name: MARE CAMPBELL Department: Room: - Gender: Male Wafer Fab Operator: hossein : 1990 Requested By: MARTA De La Cruz Order Number: [id number] Reading MD: Harpreet Moreno Measurements Intervals [place] Rate: 66 P: 67 ID: 150 QRS: 40 QRSD: 92 T: 38 QT: 367 QTc: 387 Interpretive Statements SINUS RHYTHM BENIGN EARLY REPOLARIZATION SIMILAR TO 03/05/20 Electronically Signed on 05-02-2020 8:22:33 EDT by Harpreet Moreno
== END 2020-05-02 01:43 | disposition home or self-care (01) ==
LOC: M ED 20:48
DX: R07.89 Other chest pain (principal); K21.9 Gastro-esophageal reflux disease without esophagitis; Z72.0 Tobacco use; Z79.899 Other long term (current) drug therapy; Z91.041 Radiographic dye allergy status

== ENCOUNTER → 2020-05-01 | Outpatient (CLI) | payer OTHER ==
[~2020-05-01] MED LIST changes: +AZEL1SPR3 NARES; +CETI10TA4 PO; +COLD30LI PO; +HYDR50TA70; +ROBA750T4 PO
--- NOTE | 2020-05-02 10:40 | REP ---
REASON: Pain. COMPARISON: No priors. FINDINGS: The superior mediastinal structures are midline. The cardiac silhouette is unremarkable in size, shape, and position. The diaphragmatic surfaces of the lungs are regular, and the costophrenic angles are clear. The pulmonary olson are clear. The imaged osseous structures are intact. IMPRESSION: There is no acute cardiopulmonary disease. Electronically Signed by Tanner Quiñones DO 05/02/2020 05:21 P
== END ==
LOC: M RAD 16:28
PROVIDERS: ATTEND Physician Assistant Medical
DX: R06.00 Dyspnea, unspecified (principal)

== ENCOUNTER → 2020-05-30 | Outpatient (REF) | payer OTHER ==
[~2020-05-30] MED LIST changes: +AZEL1SPR3 NARES; +CETI10TA4 PO; +COLD30LI PO; +ROBA750T4 PO
== END ==
LOC: M LAB REF 15:22
PROVIDERS: ATTEND Physician Assistant
DX: Z11.59 Encounter for screening for other viral diseases (principal); Z20.828 Contact with and (suspected) exposure to other viral communicable diseases

== ENCOUNTER → 2020-07-04 | Outpatient (CLI) | payer OTHER ==
[~2020-07-04] MED LIST changes: +E-Z-GAS II EFFERVESCENT PACKET (SODIUM BICARB./CITRIC ACID/SIMETHICONE) As Ordered ONE; +E-Z-HD 98% w/w 340GM SUSP BTL As Ordered ONE; +E-Z-PAQUE 96% w/w SUSP 176GM BTL As Ordered ONE
--- NOTE | 2020-07-21 17:00 | REP ---
UPPER GI AIR CONTRAST AND SMALL BOWEL FOLLOW-THROUGH The procedure was performed under the direct supervision of Dr. Banad. The images were reviewed with Dr. Banda. The pipe smoking machine operator film shows no organomegaly or pathological masses. The intestinal gas pattern is nonspecific. There are surgical clips noted in the right upper quadrant. Liquid barium and gas-producing granules were given in the erect position, as well as liquid barium in the prone oblique position in order to perform a double contrast upper GI examination. Additionally, liquid barium was given at the end of the examination in order to perform a small bowel follow-through. The oral and pharyngeal states of deglutition are unremarkable. Esophageal transport is prompt and efficient, and there is no esophagitis, stricture, mucosal ring, or hiatal hernia. Gastroesophageal reflux is not demonstrated on this examination. The stomach olmstead are normally outlined. The rugal folds are smooth and regular. There is no gastritis, neoplasm, or ulcer disease. The duodenal olmstead are normally outlined. The mucosal folds are smooth and regular. There is no duodenitis, pancreatitis, peptic ulcer disease, or neoplasm. The visualized portion of the proximal small bowel appears normal in course and caliber. The barium column was followed through the small bowel to the level of the terminal ileum. Small bowel transit time was approximately 125 minutes. During fluoroscopy, gentle palpation shows all loops are freely movable and pliable. There are no fixed or angulated loops. The small bowel mucosal pattern is normal in course and caliber. There is no transition to suggest a partial small bowel obstruction. Spot filming of the terminal ileum shows it to be unremarkable. IMPRESSION: Essentially unremarkable double contrast upper gastrointestinal (GI) and small bowel follow-through examination. 2.4 minutes of fluoroscopy time was utilized for this procedure. [facility]ITAL[facility]
== END ==
LOC: M RAD 07:25
PROVIDERS: ATTEND Internal Medicine Gastroenterology
DX: R10.13 Epigastric pain (principal); R14.0 Abdominal distension (gaseous)

== ENCOUNTER → 2020-07-27 | Outpatient (REF) | payer OTHER ==
[~2020-07-27] MED LIST changes: -E-Z-GAS II EFFERVESCENT PACKET (SODIUM BICARB./CITRIC ACID/SIMETHICONE) As Ordered ONE; -E-Z-HD 98% w/w 340GM SUSP BTL As Ordered ONE; -E-Z-PAQUE 96% w/w SUSP 176GM BTL As Ordered ONE; -ROBA750T4 PO
== END ==
LOC: M LAB REF 21:04
PROVIDERS: ATTEND Physician Assistant
DX: J02.9 Acute pharyngitis, unspecified (principal)

== ENCOUNTER 2020-07-28 19:12 | Emergency (ER) | payer OTHER ==
[~2020-07-28] VITALS: Ht 167.6 cm; Wt 81.6 kg
[2020-07-28 19:12] VITALS: BP 143/93
[~2020-07-28 19:12] MED LIST changes: -AZEL1SPR3 NARES; -CETI10TA4 PO; -COLD30LI PO
[2020-07-28] MEDS ORDERED: CETI10TA4 PO (19:19)
[2020-07-28] MEDS ORDERED: COLD30LI PO (19:19)
[2020-07-28] MEDS ORDERED: AZEL1SPR3 NARES (20:06)
[2020-07-28] MEDS ORDERED: PRED20TA PO (20:06)
[2020-07-28] MEDS ORDERED: predniSONE 20 MG TAB PO ONE ×2 (20:15)
== END 2020-07-28 20:20 | disposition home or self-care (01) ==
LOC: M ED 19:12
DX: J06.9 Acute upper respiratory infection, unspecified (principal); I10 Essential (primary) hypertension; F41.9 Anxiety disorder, unspecified; J30.9 Allergic rhinitis, unspecified; F17.200 Nicotine dependence, unspecified, uncomplicated; Z79.899 Other long term (current) drug therapy; Z91.041 Radiographic dye allergy status

== ENCOUNTER → 2020-08-04 | Outpatient (CLI) | payer OTHER ==
[~2020-08-04] MED LIST changes: +AZEL1SPR3 NARES; +CETI10TA4 PO; +COLD30LI PO
--- NOTE | 2020-08-04 16:25 | REPVR ---
PROCEDURE INFORMATION: Exam: XR Chest, 2 Views Exam date and time: 08/04/2020 4:04 PM Age: 30 years old Clinical indication: Patient HX: PT states has had cough since jul 2 TECHNIQUE: Imaging protocol: XR of the chest Views: 2 views. COMPARISON: CR Chest, 2 view PA, Lat 05/01/2020 5:02 PM FINDINGS: Lungs: Unremarkable. No consolidation. Pleural space: Unremarkable. No pleural effusion. No pneumothorax. Heart/Mediastinum: Unremarkable. No cardiomegaly. Bones/joints: Unremarkable. Intraperitoneal space: Surgical clips present in the right upper quadrant. IMPRESSION: No acute findings Electronically signed by: Meg Diego On 08/04/2020 16:24:47 PM
== END ==
LOC: M RAD 15:54
PROVIDERS: ATTEND Physician Assistant Medical
DX: R05 Cough (principal)

== ENCOUNTER → 2020-08-11 | Outpatient (REF) | payer OTHER, MEDICAID ==
[~2020-08-11] MED LIST changes: +ROBA750T4 PO
[2020-08-11 12:06] LABS: BASO % 0.5 % (0.0-1.0); EOS # 0.2 10^3/uL (0.0-0.5); EOS % 2.3 % (0.0-3.0); HEMATOCRIT 49.5 % (42.0-52.0); HEMOGLOBIN 16.4 g/dl (13.5-17.5); LYMPH % 30.7 % (24.0-44.0); MEAN CORPUSCULAR HEMOGLOBIN 29.8 pg (27.0-33.0); MEAN CORPUSCULAR HGB CONC 33.1 g/dl (32.0-36.5); MEAN CORPUSCULAR VOLUME 89.8 fl (80.0-96.0); MONO # 0.8 10^3/uL (0.0-0.8); MONO % 12.1 % (0.0-5.0); NEUTROPHILS # 3.5 10^3/uL (1.5-8.5); NEUTROPHILS % 54.1 % (36.0-66.0); PLATELET COUNT, AUTOMATED 203 10^3/uL (150-450); RED BLOOD COUNT 5.51 10^6/uL (4.30-6.10); WHITE BLOOD COUNT 6.5 10^3/uL (4.0-10.0)
[2020-08-11 12:47] LABS: ALBUMIN 3.9 GM/DL (3.2-5.2); ALT/SGPT 59 U/L (12-78); BILIRUBIN,TOTAL 0.3 MG/DL (0.2-1.0); BLOOD UREA NITROGEN 12 MG/DL (7-18); CALCIUM LEVEL 9.6 MG/DL (8.5-10.1); CARBON DIOXIDE LEVEL 29 MEQ/L (21-32); CHLORIDE LEVEL 102 MEQ/L (98-107); CHOLESTEROL LEVEL 186 MG/DL (<200); CHOLESTEROL RISK RATIO 2.583 (<5); CREATININE FOR GFR 1.08 MG/DL (0.70-1.30); GLOMERULAR FILTRATION RATE > 60.0 (>60); GLUCOSE, FASTING 93 MG/DL (70-100); HDL CHOLESTEROL 72 MG/DL (>40); LDL CHOLESTEROL 92 MG/DL (<100); NON-HDL-C 114 MG/DL; POTASSIUM SERUM 4.3 MEQ/L (3.5-5.1); SODIUM LEVEL 136 MEQ/L (136-145); TOTAL PROTEIN 7.8 GM/DL (6.4-8.2); TRIGLYCERIDES LEVEL 111 MG/DL (<150)
[2020-08-11 13:19] LABS: HEMOGLOBIN A1c 5.8 %
== END ==
LOC: M LAB REF 11:19
PROVIDERS: ATTEND Nurse Practitioner Family
DX: E66.9 Obesity, unspecified (principal); Z13.9 Encounter for screening, unspecified; F17.200 Nicotine dependence, unspecified, uncomplicated; R14.0 Abdominal distension (gaseous); R73.03 Prediabetes

== ENCOUNTER 2020-08-28 15:16 | Emergency (ER) | payer MEDICAID, OTHER ==
[~2020-08-28] VITALS: Ht 165.1 cm; Wt 84.0 kg
[~2020-08-28 15:16] MED LIST changes: -ROBA750T4 PO
[2020-08-28] MEDS ORDERED: ACETAMINOPHEN 325 MG TAB PO ONE (16:30)
[2020-08-28 17:06] LABS: BASO % 0.5 % (0.0-1.0); EOS # 0.1 10^3/uL (0.0-0.5); EOS % 2.1 % (0.0-3.0); HEMATOCRIT 49.3 % (42.0-52.0); HEMOGLOBIN 16.3 g/dl (13.5-17.5); LYMPH # 1.8 10^3/uL (1.5-5.0); LYMPH % 31.3 % (24.0-44.0); MEAN CORPUSCULAR HEMOGLOBIN 29.5 pg (27.0-33.0); MEAN CORPUSCULAR HGB CONC 33.1 g/dl (32.0-36.5); MEAN CORPUSCULAR VOLUME 89.3 fl (80.0-96.0); MONO # 0.5 10^3/uL (0.0-0.8); MONO % 8.6 % (0.0-5.0); NEUTROPHILS # 3.2 10^3/uL (1.5-8.5); NEUTROPHILS % 57.1 % (36.0-66.0); PLATELET COUNT, AUTOMATED 237 10^3/uL (150-450); RED BLOOD COUNT 5.52 10^6/uL (4.30-6.10); WHITE BLOOD COUNT 5.6 10^3/uL (4.0-10.0)
[2020-08-28 17:15] LABS: INR 0.94; PROTHROMBIN TIME 12.8 SECONDS (12.5-14.3)
[2020-08-28 17:16] LABS: PARTIAL THROMBOPLASTIN TIME 27.1 SECONDS (24.2-38.5)
[2020-08-28 17:18] LABS: BLOOD UREA NITROGEN 9 MG/DL (7-18); CALCIUM LEVEL 9.6 MG/DL (8.5-10.1); CARBON DIOXIDE LEVEL 28 MEQ/L (21-32); CHLORIDE LEVEL 106 MEQ/L (98-107); GLOMERULAR FILTRATION RATE > 60.0 (>60); GLUCOSE, FASTING 85 MG/DL (70-100); POTASSIUM SERUM 4.2 MEQ/L (3.5-5.1); SODIUM LEVEL 138 MEQ/L (136-145)
[2020-08-28 18:01] LABS: ALBUMIN 4.3 GM/DL (3.2-5.2); ALT/SGPT 41 U/L (12-78); BILIRUBIN,DIRECT < 0.1 MG/DL (0.0-0.2); BILIRUBIN,TOTAL 0.3 MG/DL (0.2-1.0); C REACTIVE PROTEIN QUANTITATIV 0.39 MG/DL (0.00-0.30); CK-MB VALUE MASS < 1.0 NG/ML (<3.6); CPK CREATINE PHOSPHOKINASE 149 U/L (39-308); FREE T4 0.93 NG/DL (0.76-1.46); LIPASE 79 U/L (73-393); MB/CK RELATIVE INDEX 0.67 (< OR =4); NT-PRO BNP 9 PG/ML (<125); TOTAL PROTEIN 8.3 GM/DL (6.4-8.2); TROPONIN I < 0.02 NG/ML (< 0.10)
[2020-08-28 18:09] LABS: ERYTHROCYTE SEDIMENTATION RATE 2 mm/hr (0-15)
[2020-08-28 18:22] LABS: D-DIMER QUANT < 270 ng/ml (<500)
[2020-08-28] MEDS ORDERED: ROBA750T4 PO (18:27)
[2020-08-28 18:33] VITALS: BP 154/97
--- NOTE | 2020-08-28 19:46 | ECGEPIP ---
[facility] - ED Test Date: 2020-08-28 Pat Name: MRAE CAMPBELL Department: Room: - Gender: Male Senior Information Security Architect: ARVIND : 1990 Requested By: Daphney Khan Order Number: [id number] Reading MD: Stephanie Snyder Measurements Intervals [place] Rate: 79 P: 62 NE: 143 QRS: 30 QRSD: 90 T: 25 QT: 356 QTc: 410 Interpretive Statements SINUS RHYTHM MODERATE VOLTAGE CRITERIA FOR LVH, CONSIDER NORMAL VARIANT EARLY REPOLARIZATION Electronically Signed on 08-28-2020 19:45:36 EST by Stephanie Snyder
== END 2020-08-28 18:52 | disposition home or self-care (01) ==
LOC: M ED 15:16
DX: M54.2 Cervicalgia (principal); R07.89 Other chest pain; K29.70 Gastritis, unspecified, without bleeding; F41.9 Anxiety disorder, unspecified; F17.200 Nicotine dependence, unspecified, uncomplicated; Z79.899 Other long term (current) drug therapy; Z91.041 Radiographic dye allergy status; Z88.0 Allergy status to penicillin; Z88.6 Allergy status to analgesic agent

== ENCOUNTER 2020-09-18 16:09 | Emergency (ER) | payer OTHER ==
[~2020-09-18] VITALS: Ht 165.1 cm; Wt 86.7 kg
[~2020-09-18 16:09] MED LIST changes: +ROBA750T4 PO
[2020-09-18 17:32] LABS: BASO % 0.2 % (0.0-1.0); EOS # 0.1 10^3/uL (0.0-0.5); EOS % 2.3 % (0.0-3.0); HEMOGLOBIN 16.4 g/dl (13.5-17.5); LYMPH # 1.7 10^3/uL (1.5-5.0); LYMPH % 31.4 % (24.0-44.0); MEAN CORPUSCULAR HEMOGLOBIN 29.9 pg (27.0-33.0); MEAN CORPUSCULAR HGB CONC 33.5 g/dl (32.0-36.5); MEAN CORPUSCULAR VOLUME 89.3 fl (80.0-96.0); MONO # 0.6 10^3/uL (0.0-0.8); MONO % 10.6 % (0.0-5.0); NEUTROPHILS # 3.1 10^3/uL (1.5-8.5); NEUTROPHILS % 55.3 % (36.0-66.0); RED BLOOD COUNT 5.49 10^6/uL (4.30-6.10); WHITE BLOOD COUNT 5.6 10^3/uL (4.0-10.0)
[2020-09-18] MEDS ORDERED: ISOVUE-370 76% 100ML VIAL As Ordered ONE (17:32)
--- NOTE | 2020-09-18 18:13 | REPVR ---
PROCEDURE INFORMATION: Exam: CT Cervical Spine Without Contrast Exam date and time: 09/18/2020 5:40 PM Age: 30 years old Clinical indication: Neck pain; Additional info: Vert. Point tender TECHNIQUE: Imaging protocol: Computed tomography images of the cervical spine without contrast. Radiation optimization: All CT scans at this facility use at least one of these dose optimization techniques: automated exposure control; mA and/or kV adjustment per patient size (includes targeted exams where dose is matched to clinical indication); or iterative reconstruction. COMPARISON: No relevant prior studies available. FINDINGS: Bones/joints: No segmental vertebral malalignment. Vertebral body height is maintained at all levels. No acute fracture. No destructive or blastic cervical spine osseous lesion. Discs/Spinal canal/Neural foramina: Mild degenerative disc height loss with endplate osteophytes C3-C4 and C4-C5. Minimal canal narrowing. Mild uncovertebral arthropathy at multiple levels without significant osseous neural foraminal compromise. Soft tissues: Soft tissues show no concerning abnormality or asymmetry. Lungs: Imaged lung apices demonstrate no concerning abnormality. Pleural space: No apical pneumothorax. IMPRESSION: 1. No acute traumatic or destructive cervical spine abnormality 2. Mild multilevel cervical spondylosis with no significant osseous spinal canal or osseous neural foraminal compromise Electronically signed by: Zeke Jeffrey On 09/18/2020 18:13:16 PM
[2020-09-18 18:14] LABS: ALBUMIN 3.9 GM/DL (3.2-5.2); ALT/SGPT 46 U/L (12-78); BILIRUBIN,DIRECT < 0.1 MG/DL (0.0-0.2); BILIRUBIN,TOTAL 0.3 MG/DL (0.2-1.0); TOTAL PROTEIN 8.2 GM/DL (6.4-8.2)
--- NOTE | 2020-09-18 18:14 | REPVR ---
PROCEDURE INFORMATION: Exam: CT Neck With Contrast Exam date and time: 09/18/2020 5:40 PM Age: 30 years old Clinical indication: Neck pain; Additional info: Left lateral/anterior neck pain TECHNIQUE: Imaging protocol: Computed tomography images of the neck with intravenous contrast. Radiation optimization: All CT scans at this facility use at least one of these dose optimization techniques: automated exposure control; mA and/or kV adjustment per patient size (includes targeted exams where dose is matched to clinical indication); or iterative reconstruction. Contrast material: ISOVUE 370; Contrast volume: 75 ml; Contrast route: INTRAVENOUS (IV); COMPARISON: No relevant prior studies available. FINDINGS: No focal subcutaneous soft tissue swelling. Parapharyngeal and posterior nasopharynx soft tissue planes are symmetric. No asymmetric enlargement or inflammation of the pharyngeal tonsils. Incidental left tonsillar calcifications. Vascular structures of the neck enhance normally. No abnormally enlarged cervical chain or jugulodigastric lymph nodes. Muscles of mastication and strap muscles of the neck appear normal. Parotid and minor salivary glands are unremarkable. Floor of the mouth and tongue base soft tissues appear normal. Laryngeal structures appear normal. Thyroid gland shows no abnormality. Lung apices are normal. Bony structures are unremarkable for age. IMPRESSION: Unremarkable contrast enhanced CT of the neck soft tissues. Electronically signed by: Zeke Jeffrey On 09/18/2020 18:14:32 PM
[2020-09-18 18:24] VITALS: BP 141/94
[2020-09-18 19:04] LABS: ERYTHROCYTE SEDIMENTATION RATE 2 mm/hr (0-15)
== END 2020-09-18 19:27 | disposition home or self-care (01) ==
LOC: M ED 16:09
DX: M54.2 Cervicalgia (principal); F41.9 Anxiety disorder, unspecified; Z79.899 Other long term (current) drug therapy; Z91.041 Radiographic dye allergy status; Z88.6 Allergy status to analgesic agent; Z88.0 Allergy status to penicillin
CPT/HCPCS: 70491; 72125; 80047; 80076; 81001; 84443; 85025; 85652; 99283; Q9967

== ENCOUNTER 2020-09-24 14:14 | Emergency (ER) | payer OTHER ==
[~2020-09-24] VITALS: Ht 165.1 cm; Wt 85.9 kg
[2020-09-24] MEDS ORDERED: ACETAMINOPHEN 500 MG TAB PO ONE (15:45)
[2020-09-24 16:09] LABS: BASO % 0.6 % (0.0-1.0); EOS # 0.1 10^3/uL (0.0-0.5); EOS % 2.1 % (0.0-3.0); HEMATOCRIT 46.8 % (42.0-52.0); HEMOGLOBIN 15.4 g/dl (13.5-17.5); LYMPH # 1.9 10^3/uL (1.5-5.0); LYMPH % 37.6 % (24.0-44.0); MEAN CORPUSCULAR HGB CONC 32.9 g/dl (32.0-36.5); MEAN CORPUSCULAR VOLUME 91.2 fl (80.0-96.0); MONO # 0.5 10^3/uL (0.0-0.8); MONO % 10.5 % (0.0-5.0); NEUTROPHILS # 2.5 10^3/uL (1.5-8.5); PLATELET COUNT, AUTOMATED 217 10^3/uL (150-450); RED BLOOD COUNT 5.13 10^6/uL (4.30-6.10); WHITE BLOOD COUNT 5.2 10^3/uL (4.0-10.0)
[2020-09-24 16:37] LABS: ALBUMIN 3.9 GM/DL (3.2-5.2); ALT/SGPT 39 U/L (12-78); BILIRUBIN,DIRECT < 0.1 MG/DL (0.0-0.2); BILIRUBIN,TOTAL 0.3 MG/DL (0.2-1.0); BLOOD UREA NITROGEN 11 MG/DL (7-18); CALCIUM LEVEL 9.7 MG/DL (8.5-10.1); CARBON DIOXIDE LEVEL 30 MEQ/L (21-32); CHLORIDE LEVEL 106 MEQ/L (98-107); CK-MB VALUE MASS < 1.0 NG/ML (<3.6); CPK CREATINE PHOSPHOKINASE 132 U/L (39-308); GLOMERULAR FILTRATION RATE > 60.0 (>60); GLUCOSE, FASTING 81 MG/DL (70-100); LIPASE 102 U/L (73-393); MB/CK RELATIVE INDEX 0.76 (< OR =4); POTASSIUM SERUM 4.2 MEQ/L (3.5-5.1); SODIUM LEVEL 139 MEQ/L (136-145); TROPONIN I < 0.02 NG/ML (< 0.10)
--- NOTE | 2020-09-24 17:15 | REP ---
INDICATION: CP COMPARISON: 08/04/2020 TECHNIQUE: Portable AP view of the chest FINDINGS: The mediastinum and cardiac silhouette are stable and within normal limits for portable technique. The lung olson are clear without acute consolidation, effusion, or pneumothorax. Skeletal structures are intact. IMPRESSION: No acute cardiopulmonary process appreciated. <Electronically signed by Ravi Mojica > 09/24/20 [id number]
[2020-09-24 19:26] LABS: CK-MB VALUE MASS 1.2 NG/ML (<3.6); CPK CREATINE PHOSPHOKINASE 135 U/L (39-308); MB/CK RELATIVE INDEX 0.89 (< OR =4); TROPONIN I < 0.02 NG/ML (< 0.10)
[2020-09-24] MEDS ORDERED: KEFL500C17 PO (19:43)
[2020-09-24] MEDS ORDERED: CEPHALEXIN 500 MG CAP PO ONE (19:45)
[2020-09-24 20:19] VITALS: BP 132/58
--- NOTE | 2020-09-24 20:45 | ECGEPIP ---
[facility] - ED Test Date: 2020-09-24 Pat Name: MARE CAMPBELL Department: Room: - Gender: Male Marine Welder: NAYELY : 1990 Requested By: LINCOLN BURKS Order Number: [id number] Reading MD: Stephanie Snyder Measurements Intervals [place] Rate: 66 P: 64 [place]: 161 QRS: 31 QRSD: 93 T: 21 QT: 372 QTc: 392 Interpretive Statements SINUS RHYTHM MINIMAL VOLTAGE CRITERIA FOR LVH, CONSIDER NORMAL VARIANT EARLY REPOLARIZATION DECREASED RATE 08/28/20 Electronically Signed on 09-24-2020 20:45:12 EST by Stephanie Snyder
== END 2020-09-24 20:20 | disposition home or self-care (01) ==
LOC: M ED 14:14
DX: Z11.59 Encounter for screening for other viral diseases (principal); J02.0 Streptococcal pharyngitis; F41.9 Anxiety disorder, unspecified; R51.9 Headache, unspecified; R07.9 Chest pain, unspecified; Z20.828 Contact with and (suspected) exposure to other viral communicable diseases; K29.00 Acute gastritis without bleeding; F17.200 Nicotine dependence, unspecified, uncomplicated; Z79.899 Other long term (current) drug therapy; Z91.041 Radiographic dye allergy status; Z88.0 Allergy status to penicillin; Z88.6 Allergy status to analgesic agent
CPT/HCPCS: 71045; 80048; 80076; 82550; 82553; 83690; 85025; 87880; 93005; 99284; U0003

== ENCOUNTER → 2020-12-05 | Outpatient (REF) | payer OTHER ==
[~2020-12-05] MED LIST changes: +KEFL500C17 PO
[2020-12-05 14:19] LABS: ALBUMIN 3.7 GM/DL (3.2-5.2); ALT/SGPT 41 U/L (12-78); BILIRUBIN,TOTAL 0.2 MG/DL (0.2-1.0); BLOOD UREA NITROGEN 17 MG/DL (7-18); CARBON DIOXIDE LEVEL 27 MEQ/L (21-32); CHLORIDE LEVEL 106 MEQ/L (98-107); CREATININE FOR GFR 1.04 MG/DL (0.70-1.30); GLOMERULAR FILTRATION RATE > 60.0 (>60); GLUCOSE, FASTING 105 MG/DL (70-100); POTASSIUM SERUM 4.4 MEQ/L (3.5-5.1); SODIUM LEVEL 141 MEQ/L (136-145); TOTAL PROTEIN 7.2 GM/DL (6.4-8.2)
[2020-12-05 14:33] LABS: HEMOGLOBIN A1c 5.6 %
[2020-12-05 15:16] LABS: BASO % 0.5 % (0.0-1.0); EOS # 0.2 10^3/uL (0.0-0.5); EOS % 2.4 % (0.0-3.0); HEMATOCRIT 46.7 % (42.0-52.0); HEMOGLOBIN 15.3 g/dl (13.5-17.5); LYMPH # 1.8 10^3/uL (1.5-5.0); LYMPH % 28.7 % (24.0-44.0); MEAN CORPUSCULAR HGB CONC 32.8 g/dl (32.0-36.5); MEAN CORPUSCULAR VOLUME 91.6 fl (80.0-96.0); MONO # 0.8 10^3/uL (0.0-0.8); MONO % 13.5 % (0.0-5.0); NEUTROPHILS # 3.3 10^3/uL (1.5-8.5); NEUTROPHILS % 54.6 % (36.0-66.0); PLATELET COUNT, AUTOMATED 221 10^3/uL (150-450); WHITE BLOOD COUNT 6.1 10^3/uL (4.0-10.0)
== END ==
LOC: M LAB REF 12:15
PROVIDERS: ATTEND Nurse Practitioner Family
DX: R73.03 Prediabetes (principal)

== ENCOUNTER 2021-02-09 15:34 | Emergency (ER) | payer OTHER ==
[~2021-02-09] VITALS: Ht 165.1 cm; Wt 88.7 kg
[~2021-02-09 15:34] MED LIST changes: -SIME180C PO; +SIME180C25 PO
[2021-02-09 15:35] VITALS: BP 135/85
--- NOTE | 2021-02-09 16:28 | REP ---
INDICATION: rib and chest pain. COMPARISON: Chest 09/24/2020. TECHNIQUE: Four views left ribs, frontal view chest. FINDINGS: No left rib fracture or bone lesion is seen. There is no acute infiltrate in either lung. The heart and mediastinum are within normal limits. IMPRESSION: Negative left rib series. <Electronically signed by Abelardo Banda > 02/09/21 [id number]
== END 2021-02-09 20:05 | disposition left against medical advice (07) ==
LOC: M ED 15:34
DX: Z53.21 Procedure and treatment not carried out due to patient leaving prior to being seen by health care provider (principal)

== ENCOUNTER 2021-02-12 06:40 | Emergency (ER) | payer OTHER ==
[~2021-02-12] VITALS: Ht 165.1 cm; Wt 89.3 kg
[2021-02-12] MEDS ORDERED: KETOROLAC 60MG 2ML VIAL IM ONE (07:45)
[2021-02-12] MEDS ORDERED: KETO10TAB PO (08:07)
[2021-02-12 08:41] VITALS: BP 142/72
--- NOTE | 2021-02-12 09:38 | ECGEPIP ---
[facility] - ED Test Date: 2021-02-12 Pat Name: MARE CAMPBELL Department: Room: - Gender: Male Wireless Consultant: mckenzie : 1990 Requested By: MARTA De La Cruz Order Number: [id number] Reading MD: Glenn Hood Measurements Intervals [place] Rate: 76 P: 44 CO: 154 QRS: 41 QRSD: 88 T: 23 QT: 374 QTc: 420 Interpretive Statements Normal sinus rhythm MINIMAL VOLTAGE CRITERIA FOR LVH, CONSIDER NORMAL VARIANT EARLY REPOLARIZATION Similar to tracing done 09-24-20 Electronically Signed on 02-12-2021 9:38:03 EDT by Glenn Hood
== END 2021-02-12 08:44 | disposition home or self-care (01) ==
LOC: M ED 06:40
DX: R07.89 Other chest pain (principal); S02.5XXA Fracture of tooth (traumatic), initial encounter for closed fracture; X58.XXXA Exposure to other specified factors, initial encounter; Y92.9 Unspecified place or not applicable; Y93.9 Activity, unspecified; Y99.9 Unspecified external cause status; Z86.19 Personal history of other infectious and parasitic diseases; F41.9 Anxiety disorder, unspecified; Z88.0 Allergy status to penicillin; Z88.6 Allergy status to analgesic agent; Z91.041 Radiographic dye allergy status
CPT/HCPCS: 93005; 96372; 99284; J1885

== ENCOUNTER → 2021-03-12 | Outpatient (CLI) | payer OTHER ==
--- NOTE | 2021-03-12 16:25 | REP ---
INDICATION: OTHER CHEST PAIN. COMPARISON: Multiple TECHNIQUE: PA and lateral views FINDINGS: The superior mediastinal structures are midline. The cardiac silhouette is unremarkable in size, shape, and position. The diaphragmatic surfaces of the lungs are regular, and the costophrenic angles are clear. The pulmonary olson are clear. The imaged osseous structures are intact. IMPRESSION: There is no acute cardiopulmonary disease. <Electronically signed by Tanner Quiñones > 03/12/21 [id number]
== END ==
LOC: M RAD 14:59
PROVIDERS: ATTEND Nurse Practitioner Family
DX: R07.89 Other chest pain (principal)

== ENCOUNTER 2021-03-15 06:11 | Emergency (ER) | payer OTHER ==
[~2021-03-15] VITALS: Ht 165.1 cm; Wt 87.3 kg
[2021-03-15 06:11] VITALS: BP 143/93
[2021-03-15] MEDS ORDERED: CLEO300C2 PO (07:19)
[2021-03-15] MEDS ORDERED: ANBE20GE TOP (07:19)
[2021-03-15] MEDS ORDERED: KETO10TAB PO (07:19)
== END 2021-03-15 07:34 | disposition home or self-care (01) ==
LOC: M ED 06:11
DX: K02.9 Dental caries, unspecified (principal); K08.89 Other specified disorders of teeth and supporting structures; F41.9 Anxiety disorder, unspecified; F32.9 Major depressive disorder, single episode, unspecified; F17.200 Nicotine dependence, unspecified, uncomplicated; Z88.0 Allergy status to penicillin; Z88.6 Allergy status to analgesic agent; Z91.041 Radiographic dye allergy status

== ENCOUNTER 2021-07-15 07:20 | Emergency (ER) | payer MEDICAID, OTHER ==
[~2021-07-15] VITALS: Ht 165.1 cm; Wt 84.6 kg
[2021-07-15 07:20] VITALS: BP 155/100
[~2021-07-15 07:20] MED LIST changes: +ANBE20GE TOP; +OMEP40CA4 PO; -OMEP40CA97 PO
[2021-07-15] MEDS ORDERED: ACETAMINOPHEN 325 MG TAB PO ONE (08:25)
[2021-07-15] MEDS ORDERED: LIDOCAINE 5% (LIDODERM) PATCH TD ONE (08:25)
[2021-07-15] MEDS ORDERED: METH-1164 PO (08:27)
[2021-10-23] MEDS ORDERED: VITA1CAP25 PO (14:51)
== END 2021-07-15 09:05 | disposition home or self-care (01) ==
LOC: M ED 07:20
DX: S16.1XXA Strain of muscle, fascia and tendon at neck level, initial encounter (principal); X50.9XXA Other and unspecified overexertion or strenuous movements or postures, initial encounter; F17.200 Nicotine dependence, unspecified, uncomplicated; F41.9 Anxiety disorder, unspecified; Z88.1 Allergy status to other antibiotic agents; Z88.6 Allergy status to analgesic agent; Z91.041 Radiographic dye allergy status; Y92.9 Unspecified place or not applicable; Y93.9 Activity, unspecified; Y99.9 Unspecified external cause status

== ENCOUNTER → 2021-09-13 | Outpatient (REF) | payer OTHER, MEDICAID ==
[~2021-09-13] MED LIST changes: +METH-1164 PO
== END ==
LOC: M LAB REF 10:17
PROVIDERS: ATTEND Pediatrics
DX: Z86.19 Personal history of other infectious and parasitic diseases (principal); A04.72 Enterocolitis due to Clostridium difficile, not specified as recurrent

== ENCOUNTER 2022-02-10 10:24 | Emergency (ER) | payer OTHER ==
[~2022-02-10] VITALS: Ht 165.1 cm; Wt 77.3 kg
[~2022-02-10 10:24] MED LIST changes: -OLOP0.1D OP; +OLOP5DRO16 OP; +VITA1CAP25 PO
[2022-02-10] MEDS ORDERED: PANTOPRAZOLE 40MG TAB (PROTONIX) PO ONE (11:20)
[2022-02-10] MEDS ORDERED: ACETAMINOPHEN 325 MG TAB PO ONE (12:50)
[2022-02-10 12:57] VITALS: BP 135/87
== END 2022-02-10 12:58 | disposition home or self-care (01) ==
LOC: M ED 10:24
DX: R07.89 Other chest pain (principal); F41.9 Anxiety disorder, unspecified; E55.9 Vitamin D deficiency, unspecified; K21.9 Gastro-esophageal reflux disease without esophagitis; F17.200 Nicotine dependence, unspecified, uncomplicated; Z79.899 Other long term (current) drug therapy; Z91.040 Latex allergy status; Z88.0 Allergy status to penicillin; Z88.6 Allergy status to analgesic agent

== ENCOUNTER → 2022-02-17 | Outpatient (REF) | payer OTHER | LOC: M LAB REF 11:49 | PROVIDERS: ATTEND Physician Assistant | DX: R07.89 Other chest pain (principal) ==

== ENCOUNTER → 2022-04-04 | Outpatient (REF) | payer OTHER | LOC: M LAB REF 23:02 | PROVIDERS: ATTEND Physician Assistant | DX: R05.9 Cough, unspecified (principal) ==

== ENCOUNTER → 2022-04-25 | Outpatient (CLI) | payer OTHER | LOC: M RAD 08:34 | PROVIDERS: ATTEND Pediatrics | DX: R10.11 Right upper quadrant pain (principal) ==

== ENCOUNTER → 2022-08-07 | Outpatient (REF) | payer OTHER ==
[2022-08-07 17:58] LABS: HEMATOCRIT 49.5 % (42.0-52.0); HEMOGLOBIN 16.8 g/dl (13.5-17.5); MEAN CORPUSCULAR HEMOGLOBIN 31.5 pg (27.0-33.0); MEAN CORPUSCULAR HGB CONC 33.9 g/dl (32.0-36.5); MEAN CORPUSCULAR VOLUME 92.9 fl (80.0-96.0); PLATELET COUNT, AUTOMATED 181 10^3/uL (150-450); RED BLOOD COUNT 5.33 10^6/uL (4.30-6.10); WHITE BLOOD COUNT 5.7 10^3/uL (4.0-10.0)
[2022-08-07 18:50] LABS: LIPASE 300 U/L (73-393); THYROID STIMULATING HORMONE 0.627 uIU/ML (0.358-3.740)
[2022-08-07 19:34] LABS: HEPATITIS C VIRUS ABY INDEX 0.1 INDEX (<0.8); HIV 1&2 SCREEN CENTAUR NEGATIVE (NEGATIVE)
== END ==
LOC: M LAB REF 16:30
PROVIDERS: ATTEND Pediatrics
DX: R19.5 Other fecal abnormalities (principal); K21.9 Gastro-esophageal reflux disease without esophagitis; R63.4 Abnormal weight loss

== ENCOUNTER 2022-09-08 14:19 | Emergency (ER) | payer OTHER ==
[~2022-09-08] VITALS: Ht 165.1 cm; Wt 71.6 kg
[2022-09-08 17:56] VITALS: BP 139/89
== END 2022-09-08 17:57 | disposition home or self-care (01) ==
LOC: M ED 14:19
DX: S49.92XA Unspecified injury of left shoulder and upper arm, initial encounter (principal); D48.1 Neoplasm of uncertain behavior of connective and other soft tissue; K21.9 Gastro-esophageal reflux disease without esophagitis; F41.9 Anxiety disorder, unspecified; Z90.49 Acquired absence of other specified parts of digestive tract; Z90.89 Acquired absence of other organs; Z88.1 Allergy status to other antibiotic agents; Z88.6 Allergy status to analgesic agent; Z91.041 Radiographic dye allergy status; F17.210 Nicotine dependence, cigarettes, uncomplicated

== ENCOUNTER → 2022-10-15 | Outpatient (REF) | payer OTHER | LOC: M LAB REF 12:03 | PROVIDERS: ATTEND Pediatrics | DX: K21.9 Gastro-esophageal reflux disease without esophagitis (principal); R19.5 Other fecal abnormalities ==

== ENCOUNTER → 2022-11-18 | Outpatient (CLI) | payer OTHER | LOC: M CARPUL 10:10 | PROVIDERS: ATTEND Pediatrics | DX: F17.200 Nicotine dependence, unspecified, uncomplicated (principal) ==

== ENCOUNTER → 2022-12-16 | Outpatient (REF) | payer OTHER ==
[2022-12-16 18:58] LABS: BASO % 0.6 % (0.0-1.0); EOS # 0.1 10^3/uL (0.0-0.5); EOS % 1.8 % (0.0-3.0); HEMATOCRIT 49.3 % (42.0-52.0); HEMOGLOBIN 16.8 g/dl (13.5-17.5); LYMPH # 1.9 10^3/uL (1.5-5.0); MEAN CORPUSCULAR HEMOGLOBIN 31.8 pg (27.0-33.0); MEAN CORPUSCULAR HGB CONC 34.1 g/dl (32.0-36.5); MEAN CORPUSCULAR VOLUME 93.2 fl (80.0-96.0); MONO # 0.5 10^3/uL (0.0-0.8); MONO % 9.7 % (2.0-8.0); NEUTROPHILS # 2.9 10^3/uL (1.5-8.5); NEUTROPHILS % 52.7 % (36.0-66.0); PLATELET COUNT, AUTOMATED 190 10^3/uL (150-450); RED BLOOD COUNT 5.29 10^6/uL (4.30-6.10); WHITE BLOOD COUNT 5.5 10^3/uL (4.0-10.0)
[2022-12-16 19:27] LABS: ALBUMIN 3.9 G/DL (3.2-5.2); ALKALINE PHOSPHATASE 75 U/L (46-116); ALT/SGPT 25 U/L (7.0-40); AST/SGOT 17 U/L (<34); BILIRUBIN,TOTAL 0.4 MG/DL (0.3-1.2); BLOOD UREA NITROGEN 14 MG/DL (9-23); CALCIUM LEVEL 9.4 MG/DL (8.5-10.1); CARBON DIOXIDE LEVEL 28 MMOL/L (20-31); CHLORIDE LEVEL 106 MMOL/L (98-107); CREATININE FOR GFR 0.96 MG/DL (0.70-1.30); GLOMERULAR FILTRATION RATE > 60.0 (>60); GLUCOSE, FASTING 76 MG/DL (60-100); POTASSIUM SERUM 4.2 MMOL/L (3.5-5.1); SODIUM LEVEL 140 MMOL/L (136-145); TOTAL PROTEIN 7.1 G/DL (5.7-8.2)
[2022-12-16 19:50] LABS: HEMOGLOBIN A1c 5.8 % (4.0-6.0)
== END ==
LOC: M LAB REF 16:50
PROVIDERS: ATTEND Pediatrics
DX: F41.1 Generalized anxiety disorder (principal); R73.03 Prediabetes

== ENCOUNTER 2023-01-20 04:22 | Emergency (ER) | payer OTHER ==
[~2023-01-20] VITALS: Ht 165.1 cm; Wt 73.1 kg
[2023-01-20 04:23] VITALS: BP 145/85
== END 2023-01-20 06:21 | disposition left against medical advice (07) ==
LOC: M ED 04:22
DX: Z53.21 Procedure and treatment not carried out due to patient leaving prior to being seen by health care provider (principal)

== ENCOUNTER → 2023-01-20 | Outpatient (CLI) | payer OTHER | LOC: M RAD 15:34 | PROVIDERS: ATTEND Physician Assistant Medical | DX: J02.9 Acute pharyngitis, unspecified (principal) ==

== ENCOUNTER 2023-01-22 21:38 | Emergency (ER) | payer OTHER ==
[~2023-01-22] VITALS: Ht 165.1 cm; Wt 73.9 kg
[2023-01-22 22:53] LABS: BASO % 0.3 % (0.0-1.0); EOS # 0.2 10^3/uL (0.0-0.5); EOS % 1.6 % (0.0-3.0); HEMATOCRIT 46.4 % (42.0-52.0); HEMOGLOBIN 16.1 g/dl (13.5-17.5); LYMPH # 1.9 10^3/uL (1.5-5.0); LYMPH % 21.1 % (24.0-44.0); MEAN CORPUSCULAR HEMOGLOBIN 31.8 pg (27.0-33.0); MEAN CORPUSCULAR HGB CONC 34.7 g/dl (32.0-36.5); MEAN CORPUSCULAR VOLUME 91.7 fl (80.0-96.0); MONO # 0.8 10^3/uL (0.0-0.8); MONO % 8.4 % (2.0-8.0); NEUTROPHILS # 6.2 10^3/uL (1.5-8.5); NEUTROPHILS % 68.4 % (36.0-66.0); PLATELET COUNT, AUTOMATED 186 10^3/uL (150-450); RED BLOOD COUNT 5.06 10^6/uL (4.30-6.10); WHITE BLOOD COUNT 9.1 10^3/uL (4.0-10.0)
[2023-01-22 23:14] LABS: LIPASE 34 U/L (12-53)
[2023-01-22 23:19] LABS: ALBUMIN 3.7 G/DL (3.2-5.2); ALKALINE PHOSPHATASE 82 U/L (46-116); ALT/SGPT 30 U/L (7.0-40); AST/SGOT 22 U/L (<34); BILIRUBIN,DIRECT < 0.1 MG/DL (<0.4); BILIRUBIN,TOTAL 0.2 MG/DL (0.3-1.2); BLOOD UREA NITROGEN 17 MG/DL (9-23); CALCIUM LEVEL 9.1 MG/DL (8.5-10.1); CARBON DIOXIDE LEVEL 28 MMOL/L (20-31); CHLORIDE LEVEL 105 MMOL/L (98-107); CK-MB VALUE MASS < 1.0 NG/ML (<3.6); GLOMERULAR FILTRATION RATE > 60.0 (>60); GLUCOSE, FASTING 105 MG/DL (60-100); POTASSIUM SERUM 3.9 MMOL/L (3.5-5.1); SODIUM LEVEL 139 MMOL/L (136-145); TOTAL PROTEIN 6.9 G/DL (5.7-8.2)
[2023-01-22 23:23] LABS: CPK CREATINE PHOSPHOKINASE 153 U/L (46-171); MB/CK RELATIVE INDEX 0.65 (< OR =4)
[2023-01-23 01:43] VITALS: BP 129/73
== END 2023-01-23 03:16 | disposition left against medical advice (07) ==
LOC: M ED 21:38
DX: Z53.21 Procedure and treatment not carried out due to patient leaving prior to being seen by health care provider (principal)

== ENCOUNTER 2023-01-26 09:41 | Emergency (ER) | payer OTHER ==
[~2023-01-26] VITALS: Ht 165.1 cm; Wt 72.5 kg
[2023-01-26 10:45] LABS: RSV AMPLIFICATION NEGATIVE (NEGATIVE)
[2023-01-26 11:36] LABS: HEMATOCRIT 50.9 % (42.0-52.0); HEMOGLOBIN 17.3 g/dl (13.5-17.5); MEAN CORPUSCULAR HEMOGLOBIN 31.4 pg (27.0-33.0); MEAN CORPUSCULAR VOLUME 92.4 fl (80.0-96.0); PLATELET COUNT, AUTOMATED 213 10^3/uL (150-450); RED BLOOD COUNT 5.51 10^6/uL (4.30-6.10); WHITE BLOOD COUNT 6.6 10^3/uL (4.0-10.0)
[2023-01-26 11:53] LABS: ATYPICAL LYMPH 11 % (0-5); LYMPHOCYTES 13 % (16-44); MONOCYTES 10 % (0-5); NEUTROPHILS 63 % (28-66); PLASMA CELL 3 % (0-0)
[2023-01-26 11:55] LABS: PLATELET ESTIMATE NORMAL (NORMAL)
[2023-01-26 12:00] LABS: BLOOD UREA NITROGEN 15 MG/DL (9-23); CALCIUM LEVEL 8.7 MG/DL (8.5-10.1); CARBON DIOXIDE LEVEL 26 MMOL/L (20-31); CHLORIDE LEVEL 109 MMOL/L (98-107); CREATININE FOR GFR 0.83 MG/DL (0.70-1.30); GLOMERULAR FILTRATION RATE > 60.0 (>60); GLUCOSE, FASTING 102 MG/DL (60-100); POTASSIUM SERUM 4.7 MMOL/L (3.5-5.1); SODIUM LEVEL 141 MMOL/L (136-145)
[2023-01-26 12:29] LABS: MONO REFLEX EBV COMP NEGATIVE (NEGATIVE)
[2023-01-26 13:08] VITALS: BP 136/70
[2023-01-28 16:08] LABS: EBV AB TO NUCLEAR ANTIGEN <18.0 U/mL (0.0-17.9); EBV VIRAL CAPSID AG IgG <18.0 U/mL (0.0-17.9); EBV VIRAL CAPSID AG IgM <36.0 U/mL (0.0-35.9)
== END 2023-01-26 13:09 | disposition home or self-care (01) ==
LOC: M ED 09:41
DX: R05.9 Cough, unspecified (principal); R04.2 Hemoptysis; F17.200 Nicotine dependence, unspecified, uncomplicated; Z88.0 Allergy status to penicillin; Z88.6 Allergy status to analgesic agent; Z91.041 Radiographic dye allergy status

== ENCOUNTER → 2023-01-29 | Outpatient (REF) | payer OTHER ==
[~2023-01-29] MED LIST changes: -OLOP5DRO16 OP; +OLOP5DRO17 OP
[2023-01-29 17:55] LABS: BASO % 0.3 % (0.0-1.0); EOS # 0.1 10^3/uL (0.0-0.5); EOS % 1.3 % (0.0-3.0); HEMATOCRIT 48.9 % (42.0-52.0); HEMOGLOBIN 16.8 g/dl (13.5-17.5); LYMPH # 1.3 10^3/uL (1.5-5.0); LYMPH % 21.9 % (24.0-44.0); MEAN CORPUSCULAR HEMOGLOBIN 31.6 pg (27.0-33.0); MEAN CORPUSCULAR HGB CONC 34.4 g/dl (32.0-36.5); MEAN CORPUSCULAR VOLUME 92.1 fl (80.0-96.0); MONO # 0.7 10^3/uL (0.0-0.8); MONO % 11.3 % (2.0-8.0); NEUTROPHILS % 64.9 % (36.0-66.0); PLATELET COUNT, AUTOMATED 231 10^3/uL (150-450); RED BLOOD COUNT 5.31 10^6/uL (4.30-6.10); WHITE BLOOD COUNT 6.1 10^3/uL (4.0-10.0)
== END ==
LOC: M LAB REF 17:29
PROVIDERS: ATTEND Pediatrics
DX: D72.9 Disorder of white blood cells, unspecified (principal); R05.9 Cough, unspecified

== ENCOUNTER → 2023-02-04 | Outpatient (REF) | payer OTHER ==
[2023-02-04 17:37] LABS: FREE T4 0.97 NG/DL (0.89-1.76); THYROID STIMULATING HORMONE 0.577 uIU/ML (0.55-4.78)
[2023-02-04 17:41] LABS: THYROID PEROXIDASE ANTIBODY < 28.0 U/ML (<60.0)
== END ==
LOC: M LAB REF 16:22
PROVIDERS: ATTEND Pediatrics
DX: R94.6 Abnormal results of thyroid function studies (principal)

== ENCOUNTER 2023-03-19 00:26 | Emergency (ER) | payer OTHER ==
[~2023-03-19] VITALS: Ht 165.1 cm; Wt 73.9 kg
[2023-03-19] MEDS ORDERED: KETOROLAC 60MG 2ML VIAL IM ONE (04:55)
[2023-03-19 05:11] LABS: HEMATOCRIT 47.6 % (42.0-52.0); HEMOGLOBIN 16.5 g/dl (13.5-17.5); MEAN CORPUSCULAR HEMOGLOBIN 31.9 pg (27.0-33.0); MEAN CORPUSCULAR HGB CONC 34.7 g/dl (32.0-36.5); MEAN CORPUSCULAR VOLUME 92.1 fl (80.0-96.0); PLATELET COUNT, AUTOMATED 216 10^3/uL (150-450); RED BLOOD COUNT 5.17 10^6/uL (4.30-6.10); WHITE BLOOD COUNT 6.2 10^3/uL (4.0-10.0)
[2023-03-19 05:27] LABS: ATYPICAL LYMPH 9 % (0-5); BASOPHILS 1 % (0-1); EOSINOPHILS 4 % (0-3); LYMPHOCYTES 29 % (16-44); MONOCYTES 8 % (0-5); NEUTROPHILS 49 % (28-66)
[2023-03-19 05:28] LABS: PLATELET ESTIMATE NORMAL (NORMAL)
[2023-03-19] MEDS ORDERED: BENZ200C70 PO (05:37)
[2023-03-19] MEDS ORDERED: CYCL-707 PO (05:37)
[2023-03-19 05:40] LABS: BLOOD UREA NITROGEN 14 MG/DL (9-23); CALCIUM LEVEL 9.4 MG/DL (8.5-10.1); CARBON DIOXIDE LEVEL 27 MMOL/L (20-31); CHLORIDE LEVEL 108 MMOL/L (98-107); CREATININE FOR GFR 0.86 MG/DL (0.70-1.30); GLOMERULAR FILTRATION RATE > 60.0 (>60); GLUCOSE, FASTING 96 MG/DL (60-100); POTASSIUM SERUM 4.1 MMOL/L (3.5-5.1); SODIUM LEVEL 137 MMOL/L (136-145)
[2023-03-19] MEDS ORDERED: BENZONATATE 100MG CAPSULE PO ONE (05:40)
[2023-03-19 05:45] VITALS: BP 134/70
[2023-03-19 07:46] LABS: GC DNA AMPLIFICATION NEGATIVE (NEGATIVE)
== END 2023-03-19 05:47 | disposition home or self-care (01) ==
LOC: M ED 00:26
DX: S29.011A Strain of muscle and tendon of front wall of thorax, initial encounter (principal); R10.9 Unspecified abdominal pain; F17.200 Nicotine dependence, unspecified, uncomplicated; Z88.0 Allergy status to penicillin; Z88.6 Allergy status to analgesic agent; Z91.041 Radiographic dye allergy status
CPT/HCPCS: 74176; 80048; 81001; 83605; 85025; 87661; 87810; 87850; 96372; 99283; J1885

== ENCOUNTER → 2023-04-01 | Outpatient (REF) | payer OTHER ==
[~2023-04-01] MED LIST changes: +BENZ200C70 PO
[2023-04-01 13:00] LABS: BASO % 0.5 % (0.0-1.0); EOS # 0.1 10^3/uL (0.0-0.5); EOS % 2.1 % (0.0-3.0); HEMATOCRIT 47.4 % (42.0-52.0); HEMOGLOBIN 15.9 g/dl (13.5-17.5); LYMPH # 1.5 10^3/uL (1.5-5.0); LYMPH % 24.6 % (24.0-44.0); MEAN CORPUSCULAR HEMOGLOBIN 31.4 pg (27.0-33.0); MEAN CORPUSCULAR HGB CONC 33.5 g/dl (32.0-36.5); MEAN CORPUSCULAR VOLUME 93.5 fl (80.0-96.0); MONO # 0.6 10^3/uL (0.0-0.8); MONO % 9.8 % (2.0-8.0); NEUTROPHILS # 3.8 10^3/uL (1.5-8.5); NEUTROPHILS % 62.8 % (36.0-66.0); PLATELET COUNT, AUTOMATED 187 10^3/uL (150-450); RED BLOOD COUNT 5.07 10^6/uL (4.30-6.10); WHITE BLOOD COUNT 6.1 10^3/uL (4.0-10.0)
== END ==
LOC: M LAB REF 12:06
PROVIDERS: ATTEND Pediatrics
DX: D72.9 Disorder of white blood cells, unspecified (principal); Z77.011 Contact with and (suspected) exposure to lead

== ENCOUNTER → 2023-06-10 | Outpatient (REF) | payer OTHER ==
[~2023-06-10] MED LIST changes: +DICY-61 PO; -DICY10CA13 PO
[2023-06-10 12:25] LABS: BASO % 0.4 % (0.0-1.0); EOS # 0.1 10^3/uL (0.0-0.5); EOS % 2.4 % (0.0-3.0); HEMATOCRIT 50.8 % (42.0-52.0); HEMOGLOBIN 17.4 g/dl (13.5-17.5); LYMPH # 1.4 10^3/uL (1.5-5.0); LYMPH % 30.8 % (24.0-44.0); MEAN CORPUSCULAR HEMOGLOBIN 31.7 pg (27.0-33.0); MEAN CORPUSCULAR HGB CONC 34.3 g/dl (32.0-36.5); MEAN CORPUSCULAR VOLUME 92.5 fl (80.0-96.0); MONO # 0.5 10^3/uL (0.0-0.8); NEUTROPHILS # 2.6 10^3/uL (1.5-8.5); NEUTROPHILS % 55.2 % (36.0-66.0); PLATELET COUNT, AUTOMATED 204 10^3/uL (150-450); RED BLOOD COUNT 5.49 10^6/uL (4.30-6.10); WHITE BLOOD COUNT 4.6 10^3/uL (4.0-10.0)
[2023-06-13 16:08] LABS: CALPROTECTIN STOOL 7 ug/g (0-120); H PYLORI STOOL ANTIGEN Negative (Negative)
== END ==
LOC: M LAB REF 11:38
PROVIDERS: ATTEND Pediatrics
DX: K62.5 Hemorrhage of anus and rectum (principal); N50.819 Testicular pain, unspecified

== ENCOUNTER 2023-06-22 09:21 | Emergency (ER) | payer OTHER ==
[~2023-06-22] VITALS: Ht 165.1 cm; Wt 75.5 kg
[2023-06-22 09:21] VITALS: BP 140/80; TEMP 97.9; O2SAT 98
== END 2023-06-22 14:08 | disposition left against medical advice (07) ==
LOC: M ED 09:21
DX: Z53.21 Procedure and treatment not carried out due to patient leaving prior to being seen by health care provider (principal)

== ENCOUNTER 2023-06-25 06:05 | Emergency (ER) | payer OTHER ==
[~2023-06-25] VITALS: Ht 165.1 cm; Wt 75.2 kg
[2023-06-25] MEDS ORDERED: CEPH500C (06:12)
[2023-06-25] MEDS ORDERED: VITA200032 (06:12)
[2023-06-25] MEDS ORDERED: KETOROLAC 30 MG/ML 1ML VIAL IV ONE (06:50)
[2023-06-25 07:43] LABS: HEMATOCRIT 48.8 % (42.0-52.0); HEMOGLOBIN 16.8 g/dl (13.5-17.5); MEAN CORPUSCULAR HEMOGLOBIN 31.4 pg (27.0-33.0); MEAN CORPUSCULAR HGB CONC 34.4 g/dl (32.0-36.5); MEAN CORPUSCULAR VOLUME 91.2 fl (80.0-96.0); PLATELET COUNT, AUTOMATED 176 10^3/uL (150-450); RED BLOOD COUNT 5.35 10^6/uL (4.30-6.10); WHITE BLOOD COUNT 8.8 10^3/uL (4.0-10.0)
[2023-06-25 08:00] LABS: ALBUMIN 4.2 G/DL (3.2-5.2); ALKALINE PHOSPHATASE 77 U/L (46-116); ALT/SGPT 45 U/L (7.0-40); AST/SGOT 47 U/L (<34); BILIRUBIN,DIRECT < 0.1 MG/DL (<0.4); BILIRUBIN,TOTAL 0.3 MG/DL (0.3-1.2); BLOOD UREA NITROGEN 13 MG/DL (9-23); CALCIUM LEVEL 9.2 MG/DL (8.5-10.1); CARBON DIOXIDE LEVEL 25 MMOL/L (20-31); CHLORIDE LEVEL 106 MMOL/L (98-107); CREATININE FOR GFR 0.97 MG/DL (0.70-1.30); GLOMERULAR FILTRATION RATE > 60.0 (>60); GLUCOSE, FASTING 98 MG/DL (60-100); SODIUM LEVEL 137 MMOL/L (136-145); TOTAL PROTEIN 7.6 G/DL (5.7-8.2)
[2023-06-25 08:23] LABS: ATYPICAL LYMPH 2 % (0-5); EOSINOPHILS 3 % (0-3); MONOCYTES 6 % (0-5); NEUTROPHILS 89 % (28-66); PLATELET ESTIMATE NORMAL (NORMAL)
[2023-06-25 08:24] LABS: TOXIC VACUOLATION 1+
[2023-06-25 08:59] LABS: ERYTHROCYTE SEDIMENTATION RATE 15 mm/hr (0-15)
[2023-06-25] MEDS ORDERED: ONDA4TAB6 PO (09:21)
[2023-06-25] MEDS ORDERED: BACT800T5 PO (09:21)
[2023-06-25 09:35] VITALS: BP 108/53; TEMP 98.8; O2SAT 99
== END 2023-06-25 09:43 | disposition home or self-care (01) ==
LOC: M ED 06:05
DX: L03.116 Cellulitis of left lower limb (principal); K21.9 Gastro-esophageal reflux disease without esophagitis; F41.9 Anxiety disorder, unspecified; F17.200 Nicotine dependence, unspecified, uncomplicated; Z79.899 Other long term (current) drug therapy; Z91.041 Radiographic dye allergy status; Z88.0 Allergy status to penicillin; Z88.6 Allergy status to analgesic agent
CPT/HCPCS: 80048; 80076; 85025; 85652; 86140; 94760; 96374; 99284; J1885

== ENCOUNTER → 2023-08-11 | Outpatient (REF) | payer OTHER ==
[~2023-08-11] MED LIST changes: +VITA200032
== END ==
LOC: M LAB REF 20:51
PROVIDERS: ATTEND Physician Assistant Medical
DX: R05.9 Cough, unspecified (principal)

== ENCOUNTER 2023-09-18 18:08 | Emergency (ER) | payer OTHER ==
[~2023-09-18] VITALS: Ht 165.1 cm; Wt 78.0 kg
[2023-09-18 18:09] VITALS: TEMP 98.6
[2023-09-18 19:36] LABS: BASO % 0.5 % (0.0-1.0); EOS # 0.2 10^3/uL (0.0-0.5); EOS % 2.6 % (0.0-3.0); HEMATOCRIT 47.1 % (42.0-52.0); HEMOGLOBIN 16.4 g/dl (13.5-17.5); LYMPH # 2.1 10^3/uL (1.5-5.0); LYMPH % 36.4 % (24.0-44.0); MEAN CORPUSCULAR HEMOGLOBIN 31.7 pg (27.0-33.0); MEAN CORPUSCULAR HGB CONC 34.8 g/dl (32.0-36.5); MEAN CORPUSCULAR VOLUME 91.1 fl (80.0-96.0); MONO # 0.6 10^3/uL (0.0-0.8); MONO % 9.7 % (2.0-8.0); NEUTROPHILS % 50.6 % (36.0-66.0); PLATELET COUNT, AUTOMATED 199 10^3/uL (150-450); RED BLOOD COUNT 5.17 10^6/uL (4.30-6.10); WHITE BLOOD COUNT 5.9 10^3/uL (4.0-10.0)
[2023-09-18 20:04] LABS: LIPASE 39 U/L (12-53)
[2023-09-18] MEDS ORDERED: ACETAMINOPHEN 500 MG TAB PO ONE (20:05)
[2023-09-18] MEDS ORDERED: FAMOTIDINE 20MG/2ML VIAL IVP ONE (20:05)
[2023-09-18 20:07] LABS: ALBUMIN 3.8 G/DL (3.2-5.2); ALKALINE PHOSPHATASE 79 U/L (46-116); ALT/SGPT 27 U/L (7.0-40); AST/SGOT 18 U/L (<34); BILIRUBIN,DIRECT < 0.1 MG/DL (<0.4); BILIRUBIN,TOTAL 0.2 MG/DL (0.3-1.2); BLOOD UREA NITROGEN 17 MG/DL (9-23); CALCIUM LEVEL 9.1 MG/DL (8.5-10.1); CARBON DIOXIDE LEVEL 30 MMOL/L (20-31); CHLORIDE LEVEL 103 MMOL/L (98-107); CK-MB VALUE MASS < 1.0 NG/ML (<3.6); GLOMERULAR FILTRATION RATE > 60.0 (>60); GLUCOSE, FASTING 91 MG/DL (60-100); POTASSIUM SERUM 3.9 MMOL/L (3.5-5.1); SODIUM LEVEL 141 MMOL/L (136-145); TOTAL PROTEIN 7.1 G/DL (5.7-8.2)
[2023-09-18 20:09] LABS: THYROID STIMULATING HORMONE 1.276 uIU/ML (0.55-4.78)
[2023-09-18 20:11] LABS: CPK CREATINE PHOSPHOKINASE 138 U/L (46-171); MB/CK RELATIVE INDEX 0.72 (< OR =4)
[2023-09-18 22:01] LABS: CK-MB VALUE MASS < 1.0 NG/ML (<3.6); CPK CREATINE PHOSPHOKINASE 149 U/L (46-171); MB/CK RELATIVE INDEX 0.67 (< OR =4)
[2023-09-18 22:30] VITALS: BP 144/98; O2SAT 100
[2023-09-18] MEDS ORDERED: PROA1AER2 INH (22:34)
== END 2023-09-18 22:43 | disposition home or self-care (01) ==
LOC: M ED 18:08
DX: R07.9 Chest pain, unspecified (principal); K21.9 Gastro-esophageal reflux disease without esophagitis; F12.10 Cannabis abuse, uncomplicated; Z91.041 Radiographic dye allergy status; Z88.1 Allergy status to other antibiotic agents; Z88.6 Allergy status to analgesic agent; Z79.52 Long term (current) use of systemic steroids
CPT/HCPCS: 71045; 80048; 80076; 82550; 82553; 83690; 84443; 85025; 93005; 96374; 99284; S0028

== ENCOUNTER → 2023-12-22 | Outpatient (REF) | payer OTHER ==
[~2023-12-22] MED LIST changes: +PROA1AER2 INH
[2023-12-22 17:34] LABS: ALKALINE PHOSPHATASE 83 U/L (46-116); ALT/SGPT 30 U/L (7.0-40); AST/SGOT 20 U/L (<34); BILIRUBIN,TOTAL 0.4 MG/DL (0.3-1.2); BLOOD UREA NITROGEN 11 MG/DL (9-23); CALCIUM LEVEL 9.3 MG/DL (8.5-10.1); CARBON DIOXIDE LEVEL 28 MMOL/L (20-31); CHLORIDE LEVEL 110 MMOL/L (98-107); CREATININE FOR GFR 0.88 MG/DL (0.70-1.30); GLOMERULAR FILTRATION RATE > 60.0 (>60); GLUCOSE, FASTING 100 MG/DL (60-100); POTASSIUM SERUM 4.5 MMOL/L (3.5-5.1); SODIUM LEVEL 140 MMOL/L (136-145); TOTAL PROTEIN 7.3 G/DL (5.7-8.2)
== END ==
LOC: M LAB REF 16:28
PROVIDERS: ATTEND Pediatrics
DX: K21.9 Gastro-esophageal reflux disease without esophagitis (principal)

== ENCOUNTER → 2023-12-30 | Outpatient (CLI) | payer OTHER | LOC: M SOG 09:14 | PROVIDERS: ATTEND Physician Assistant | DX: M79.642 Pain in left hand (principal) ==

== ENCOUNTER 2024-01-26 15:13 | Emergency (ER) | payer OTHER ==
[~2024-01-26] VITALS: Ht 157.5 cm; Wt 76.5 kg
[2024-01-26 15:13] VITALS: BP 146/92; TEMP 98.8; O2SAT 97
== END 2024-01-26 15:17 | disposition left against medical advice (07) ==
LOC: M ED 15:13
DX: Z53.21 Procedure and treatment not carried out due to patient leaving prior to being seen by health care provider (principal)

== ENCOUNTER 2024-01-27 23:40 | Emergency (ER) | payer OTHER ==
[2024-01-27 23:41] VITALS: BP 162/90; TEMP 98.6; O2SAT 99
== END 2024-01-28 02:35 | disposition left against medical advice (07) ==
LOC: M ED 23:40
DX: Z53.21 Procedure and treatment not carried out due to patient leaving prior to being seen by health care provider (principal)

== ENCOUNTER → 2024-02-04 | Outpatient (CLI) | payer OTHER | LOC: M SOG 14:06 | PROVIDERS: ATTEND Physician Assistant | DX: M50.30 Other cervical disc degeneration, unspecified cervical region (principal) ==

== ENCOUNTER → 2024-03-10 | Outpatient (REF) | payer OTHER ==
[2024-03-10 14:41] LABS: ALBUMIN 3.8 G/DL (3.2-5.2); ALKALINE PHOSPHATASE 79 U/L (46-116); ALT/SGPT 49 U/L (7.0-40); AST/SGOT 20 U/L (<34); BILIRUBIN,TOTAL 0.2 MG/DL (0.3-1.2); BLOOD UREA NITROGEN 12 MG/DL (9-23); CALCIUM LEVEL 9.3 MG/DL (8.5-10.1); CARBON DIOXIDE LEVEL 29 MMOL/L (20-31); CHLORIDE LEVEL 110 MMOL/L (98-107); CREATININE FOR GFR 0.91 MG/DL (0.70-1.30); GLOMERULAR FILTRATION RATE > 60.0 (>60); GLUCOSE, FASTING 89 MG/DL (60-100); POTASSIUM SERUM 4.6 MMOL/L (3.5-5.1); SODIUM LEVEL 142 MMOL/L (136-145); TOTAL PROTEIN 7.1 G/DL (5.7-8.2)
[2024-03-10 15:09] LABS: HEMOGLOBIN A1c 5.6 % (4.0-6.0)
== END ==
LOC: M LAB REF 11:57
PROVIDERS: ATTEND Pediatrics
DX: K21.9 Gastro-esophageal reflux disease without esophagitis (principal); R73.03 Prediabetes; E55.9 Vitamin D deficiency, unspecified

== ENCOUNTER → 2024-04-03 | Outpatient (CLI) | payer OTHER ==
[~2024-04-03] MED LIST changes: +ASPE4PAD TOP; +MEDR4PAK PO; +METH-1165 PO; +ONDA-282 PO; -ONDA4TAB6 PO
== END ==
LOC: M RAD 15:07
PROVIDERS: ATTEND Physician Assistant
DX: M50.10 Cervical disc disorder with radiculopathy, unspecified cervical region (principal)

== ENCOUNTER 2024-04-04 07:41 | Emergency (ER) | payer OTHER ==
[~2024-04-04] VITALS: Ht 165.1 cm; Wt 75.9 kg
[~2024-04-04 07:41] MED LIST changes: -ASPE4PAD TOP; -MEDR4PAK PO; -METH-1165 PO
[2024-04-04] MEDS: LIDOCAINE 5% (LIDODERM) PATCH TD ONE (09:19)
[2024-04-04] MEDS: KETOROLAC 60MG 2ML VIAL IM ONE (09:20)
[2024-04-04] MEDS: diazePAM 5MG TABLET PO ONE (09:20)
[2024-04-04] MEDS ORDERED: MEDR4PAK PO (10:25)
[2024-04-04] MEDS ORDERED: ASPE4PAD TOP (10:25)
[2024-04-04] MEDS ORDERED: METH-1165 PO (10:25)
[2024-04-04 10:33] VITALS: BP 138/96; TEMP 97.7; O2SAT 98
== END 2024-04-04 11:05 | disposition home or self-care (01) ==
LOC: M ED 07:41
DX: M79.601 Pain in right arm (principal); M25.511 Pain in right shoulder; K21.9 Gastro-esophageal reflux disease without esophagitis; F12.10 Cannabis abuse, uncomplicated; F17.200 Nicotine dependence, unspecified, uncomplicated; Z90.89 Acquired absence of other organs; Z91.041 Radiographic dye allergy status; Z88.0 Allergy status to penicillin; Z88.6 Allergy status to analgesic agent; Z79.1 Long term (current) use of non-steroidal anti-inflammatories (NSAID); Z79.899 Other long term (current) drug therapy
CPT/HCPCS: 93971; 96372; 99283; J1885

== ENCOUNTER 2024-05-04 06:44 | Emergency (ER) | payer OTHER ==
[~2024-05-04] VITALS: Ht 162.6 cm; Wt 76.8 kg
[2024-05-04 06:44] VITALS: BP 140/90; TEMP 99.5; O2SAT 98
[~2024-05-04 06:44] MED LIST changes: +ASPE4PAD TOP; +MEDR4PAK PO; +METH-1165 PO
[2024-05-04] MEDS ORDERED: OMEP40CA5 (08:00)
[2024-05-04] MEDS ORDERED: PENI500T PO (08:02)
[2024-05-04] MEDS ORDERED: TRAM50TA2 PO (08:03)
== END 2024-05-04 08:12 | disposition home or self-care (01) ==
LOC: M ED 06:44
DX: K08.89 Other specified disorders of teeth and supporting structures (principal); Z88.1 Allergy status to other antibiotic agents; Z88.6 Allergy status to analgesic agent; Z91.041 Radiographic dye allergy status; Z79.2 Long term (current) use of antibiotics; Z79.899 Other long term (current) drug therapy

== ENCOUNTER → 2024-05-07 | Outpatient (CLI) | payer OTHER ==
[~2024-05-07] MED LIST changes: +OMEP40CA5; +PENI500T PO; +TRAM50TA2 PO
== END ==
LOC: M RAD 13:37
PROVIDERS: ATTEND Physician Assistant
DX: N53.12 Painful ejaculation (principal); N50.89 Other specified disorders of the male genital organs

== ENCOUNTER 2024-06-04 10:45 | Day surgery (SDC) | payer OTHER ==
[~2024-06-04] VITALS: Ht 162.6 cm; Wt 75.9 kg
[2024-06-04] MEDS: NS 1,000 ML IV ONE (11:21)
[2024-06-04] MEDS ORDERED: propofoL 200 MG/20 ML VIAL As Ordered ONE (12:13)
[2024-06-04] MEDS ORDERED: LIDOCAINE 2% 100MG/5ML SDV (FOR ANES.) As Ordered ONE (12:14)
[2024-06-04 12:37] VITALS: TEMP 97.6
[2024-06-04 12:57] VITALS: BP 131/83; O2SAT 99
== END 2024-06-04 13:03 | disposition home or self-care (01) ==
LOC: M OPP 10:45
PROVIDERS: ATTEND Surgery
DX: K64.0 First degree hemorrhoids (principal); K92.1 Melena; Z79.899 Other long term (current) drug therapy; Z88.1 Allergy status to other antibiotic agents; Z88.6 Allergy status to analgesic agent; Z91.041 Radiographic dye allergy status; Z91.048 Other nonmedicinal substance allergy status; F17.200 Nicotine dependence, unspecified, uncomplicated

== ENCOUNTER → 2024-07-24 | Outpatient (REF) | payer OTHER | LOC: M LAB REF 12:00 | PROVIDERS: ATTEND Physician Assistant Medical | DX: B34.9 Viral infection, unspecified (principal) ==

== ENCOUNTER → 2024-08-13 | Outpatient (CLI) | payer OTHER ==
[~2024-08-13] MED LIST changes: -SIME180C25 PO; +SIME1CAP4 PO
== END ==
LOC: M RAD 13:23
PROVIDERS: ATTEND Pediatrics
DX: R05.9 Cough, unspecified (principal); M54.6 Pain in thoracic spine

== ENCOUNTER → 2024-08-13 | Outpatient (REF) | payer OTHER ==
[2024-08-13 13:09] LABS: ALBUMIN 3.9 G/DL (3.2-5.2); ALKALINE PHOSPHATASE 83 U/L (46-116); ALT/SGPT 33 U/L (7.0-40); AST/SGOT 14 U/L (<34); BILIRUBIN,TOTAL 0.3 MG/DL (0.3-1.2); BLOOD UREA NITROGEN 16 MG/DL (9-23); CALCIUM LEVEL 9.7 MG/DL (8.5-10.1); CARBON DIOXIDE LEVEL 26 MMOL/L (20-31); CHLORIDE LEVEL 110 MMOL/L (98-107); CREATININE FOR GFR 0.91 MG/DL (0.70-1.30); GLOMERULAR FILTRATION RATE > 60.0 (>60); GLUCOSE, FASTING 97 MG/DL (60-100); POTASSIUM SERUM 4.3 MMOL/L (3.5-5.1); SODIUM LEVEL 140 MMOL/L (136-145); TOTAL PROTEIN 7.5 G/DL (5.7-8.2)
[2024-08-13 13:15] LABS: THYROID STIMULATING HORMONE 0.682 uIU/ML (0.55-4.78)
[2024-08-13 13:21] LABS: APPEARANCE, URINE CLEAR (CLEAR); BACTERIA, URINE AUTO NEGATIVE (NEGATIVE); BILIRUBIN, URINE AUTO NEGATIVE (NEGATIVE); BLOOD, URINE BLOOD NEGATIVE (NEGATIVE); COLOR, URINE YELLOW (YELLOW); GLUCOSE, URINE (UA) AUTO NEGATIVE (NEGATIVE); KETONE, URINE AUTO NEGATIVE (NEGATIVE); LEUKOCYTE ESTERASE, URINE AUTO NEGATIVE (NEGATIVE); MUCUS, URINE SMALL (NEGATIVE); NITRITE, URINE AUTO NEGATIVE (NEGATIVE); PROTEIN, URINE AUTO NEGATIVE (NEGATIVE); RBC, URINE AUTO 0 /HPF (0-3); SQUAMOUS EPITHELIAL CELL UR AU 0 /HPF (0-6); UROBILINOGEN, URINE AUTO 0.2 mg/dL (0.0-2.0); WBC, URINE AUTO 0 /HPF (0-3)
== END ==
LOC: M LAB REF 11:59
PROVIDERS: ATTEND Pediatrics
DX: M54.6 Pain in thoracic spine (principal); F41.8 Other specified anxiety disorders

== ENCOUNTER 2024-11-14 10:31 | Emergency (ER) | payer OTHER ==
[~2024-11-14 10:31] MED LIST changes: -HYOS0.1214 PO; +HYOS0.1282 PO
[2024-11-14 12:20] LABS: BASO % 0.5 % (0.0-1.0); EOS # 0.1 10^3/uL (0.0-0.5); EOS % 2.1 % (0.0-3.0); HEMATOCRIT 46.1 % (42.0-52.0); HEMOGLOBIN 15.7 g/dl (13.5-17.5); LYMPH # 1.6 10^3/uL (1.5-5.0); LYMPH % 27.9 % (24.0-44.0); MEAN CORPUSCULAR HEMOGLOBIN 31.5 pg (27.0-33.0); MEAN CORPUSCULAR HGB CONC 34.1 g/dl (32.0-36.5); MEAN CORPUSCULAR VOLUME 92.6 fl (80.0-96.0); MONO # 0.5 10^3/uL (0.0-0.8); MONO % 8.5 % (2.0-8.0); NEUTROPHILS # 3.5 10^3/uL (1.5-8.5); NEUTROPHILS % 60.8 % (36.0-66.0); PLATELET COUNT, AUTOMATED 210 10^3/uL (150-450); RED BLOOD COUNT 4.98 10^6/uL (4.30-6.10); WHITE BLOOD COUNT 5.7 10^3/uL (4.0-10.0)
[2024-11-14 12:24] VITALS: TEMP 98.4
[2024-11-14 12:49] LABS: CPK CREATINE PHOSPHOKINASE 123 U/L (46-171)
[2024-11-14 12:50] LABS: BLOOD UREA NITROGEN 12 MG/DL (9-23); CARBON DIOXIDE LEVEL 28 MMOL/L (20-31); CHLORIDE LEVEL 109 MMOL/L (98-107); CK-MB VALUE MASS < 1.0 NG/ML (<3.6); CREATININE FOR GFR 0.89 MG/DL (0.70-1.30); GLOMERULAR FILTRATION RATE > 60.0 (>60); GLUCOSE, FASTING 94 MG/DL (60-100); MB/CK RELATIVE INDEX 0.81 (< OR =4); POTASSIUM SERUM 4.3 MMOL/L (3.5-5.1); SODIUM LEVEL 142 MMOL/L (136-145)
[2024-11-14 13:46] LABS: CK-MB VALUE MASS < 1.0 NG/ML (<3.6)
[2024-11-14 13:53] LABS: CPK CREATINE PHOSPHOKINASE 123 U/L (46-171); MB/CK RELATIVE INDEX 0.81 (< OR =4)
[2024-11-14 14:01] VITALS: BP 115/81
[2024-11-14 14:31] VITALS: O2SAT 100
[2024-11-14 14:40] LABS: ALBUMIN 3.7 G/DL (3.2-5.2); ALKALINE PHOSPHATASE 92 U/L (40-129); ALT/SGPT 27 U/L (7.0-40); AST/SGOT 14 U/L (<34); BILIRUBIN,DIRECT < 0.1 MG/DL (<0.4); BILIRUBIN,TOTAL 0.2 MG/DL (0.3-1.2); TOTAL PROTEIN 7.2 G/DL (5.7-8.2)
== END 2024-11-14 14:45 | disposition left against medical advice (07) ==
LOC: M ED 10:31
DX: R07.9 Chest pain, unspecified (principal); K21.9 Gastro-esophageal reflux disease without esophagitis; E55.9 Vitamin D deficiency, unspecified; F17.200 Nicotine dependence, unspecified, uncomplicated; Z88.1 Allergy status to other antibiotic agents; Z88.6 Allergy status to analgesic agent; Z91.041 Radiographic dye allergy status; Z53.9 Procedure and treatment not carried out, unspecified reason

== ENCOUNTER → 2025-02-10 | Outpatient (CLI) | payer OTHER ==
[~2025-02-10] MED LIST changes: +VANC125C13 PO; -VANC125C3 PO
== END ==
LOC: M CARPUL 12:49
PROVIDERS: ATTEND Physician Assistant
DX: R06.00 Dyspnea, unspecified (principal)

== ENCOUNTER → 2025-02-21 | Outpatient (REF) | payer OTHER ==
[2025-02-21 18:33] LABS: HEMATOCRIT 48.9 % (42.0-52.0); HEMOGLOBIN 16.7 g/dl (13.5-17.5); MEAN CORPUSCULAR HEMOGLOBIN 31.2 pg (27.0-33.0); MEAN CORPUSCULAR HGB CONC 34.2 g/dl (32.0-36.5); MEAN CORPUSCULAR VOLUME 91.4 fl (80.0-96.0); PLATELET COUNT, AUTOMATED 218 10^3/uL (150-450); RED BLOOD COUNT 5.35 10^6/uL (4.30-6.10); WHITE BLOOD COUNT 5.5 10^3/uL (4.0-10.0)
[2025-02-21 18:38] LABS: HEMOGLOBIN A1c 5.5 % (4.0-6.0)
[2025-02-21 18:45] LABS: URIC ACID 5.7 MG/DL (3.7-9.2)
[2025-02-21 18:48] LABS: ALBUMIN 3.9 G/DL (3.2-5.2); ALKALINE PHOSPHATASE 76 U/L (40-129); ALT/SGPT 34 U/L (7.0-40); AST/SGOT 15 U/L (<34); BILIRUBIN,TOTAL 0.3 MG/DL (0.3-1.2); BLOOD UREA NITROGEN 11 MG/DL (9-23); CALCIUM LEVEL 9.5 MG/DL (8.5-10.1); CARBON DIOXIDE LEVEL 28 MMOL/L (20-31); CHLORIDE LEVEL 109 MMOL/L (98-107); CREATININE FOR GFR 0.89 MG/DL (0.70-1.30); GLOMERULAR FILTRATION RATE > 90.0 (>60); GLUCOSE, FASTING 94 MG/DL (60-100); POTASSIUM SERUM 4.2 MMOL/L (3.5-5.1); SODIUM LEVEL 144 MMOL/L (136-145); TOTAL PROTEIN 7.2 G/DL (5.7-8.2)
[2025-02-21 19:05] LABS: ATYPICAL LYMPH 3 % (0-5); BASOPHILS 1 % (0-1); EOSINOPHILS 4 % (0-3); LYMPHOCYTES 38 % (16-44); MONOCYTES 10 % (0-5); NEUTROPHILS 44 % (28-66)
[2025-02-21 19:06] LABS: PLATELET ESTIMATE NORMAL (NORMAL)
[2025-02-21 19:27] LABS: ERYTHROCYTE SEDIMENTATION RATE 10 mm/hr (0-15)
[2025-03-07 07:02] LABS: LYME TOTAL ANTIBODY CIA <= 0.90 INDEX (<=0.90)
== END ==
LOC: M LAB REF 17:24
PROVIDERS: ATTEND Pediatrics
DX: R73.03 Prediabetes (principal); R51.9 Headache, unspecified; M25.532 Pain in left wrist

== ENCOUNTER → 2025-03-01 | Outpatient (CLI) | payer OTHER | LOC: M RAD 09:45 | PROVIDERS: ATTEND Pediatrics | DX: R51.9 Headache, unspecified (principal); M25.532 Pain in left wrist ==

== ENCOUNTER → 2025-05-10 | Outpatient (REF) | payer OTHER ==
[2025-05-10 14:28] LABS: APPEARANCE, URINE CLEAR (CLEAR); BACTERIA, URINE AUTO NEGATIVE (NEGATIVE); BILIRUBIN, URINE AUTO NEGATIVE (NEGATIVE); BLOOD, URINE BLOOD NEGATIVE (NEGATIVE); GLUCOSE, URINE (UA) AUTO NEGATIVE (NEGATIVE); KETONE, URINE AUTO NEGATIVE (NEGATIVE); LEUKOCYTE ESTERASE, URINE AUTO NEGATIVE (NEGATIVE); MUCUS, URINE SMALL (NEGATIVE); NITRITE, URINE AUTO NEGATIVE (NEGATIVE); PROTEIN, URINE AUTO NEGATIVE (NEGATIVE); RBC, URINE AUTO 0 /HPF (0-3); SPECIFIC GRAVITY URINE AUTO 1.009 (1.002-1.035); SQUAMOUS EPITHELIAL CELL UR AU 0 /HPF (0-6); UROBILINOGEN, URINE AUTO 0.2 mg/dL (0.0-2.0); WBC, URINE AUTO 2 /HPF (0-3)
[2025-05-10 18:50] LABS: PSA SCREENING 0.41 NG/ML (< 4.00)
[2025-05-10 19:19] LABS: HIV 1&2 SCREEN NEGATIVE (NEGATIVE)
[2025-05-10 19:27] LABS: HEPATITIS C VIRUS ABY INDEX < 0.02 INDEX (<0.8)
== END ==
LOC: M LAB REF 13:31
PROVIDERS: ATTEND Pediatrics
DX: R10.9 Unspecified abdominal pain (principal); Z91.89 Other specified personal risk factors, not elsewhere classified; Z80.42 Family history of malignant neoplasm of prostate; Z12.5 Encounter for screening for malignant neoplasm of prostate

== ENCOUNTER → 2025-08-23 | Outpatient (CLI) | payer OTHER ==
[~2025-08-23] MED LIST changes: -IBUP-1022 PO; +IBUP600T42 PO
== END ==
LOC: M WHC 14:59
PROVIDERS: ATTEND Pediatrics
DX: N64.4 Mastodynia (principal); N62 Hypertrophy of breast

== ENCOUNTER 2025-08-31 10:32 | Day surgery (SDC) | payer OTHER ==
[~2025-08-31] VITALS: Ht 165.1 cm; Wt 77.8 kg
[2025-08-31] MEDS ORDERED: LIDOCAINE 2% 100 MG/5 ML SDV (FOR ANES.) As Ordered ONE (10:43)
[2025-08-31] MEDS ORDERED: dexmedeTOMIDine (4 MCG/ML) 200 MCG/50 ML BTL As Ordered ONE (11:07)
[2025-08-31 11:27] VITALS: TEMP 97.2
[2025-08-31 11:45] VITALS: BP 104/70; O2SAT 99
== END 2025-08-31 11:54 | disposition home or self-care (01) ==
LOC: M OPP 10:32
PROVIDERS: ATTEND Surgery
DX: K22.70 Barrett's esophagus without dysplasia (principal); K29.50 Unspecified chronic gastritis without bleeding; B96.81 Helicobacter pylori [H. pylori] as the cause of diseases classified elsewhere; R10.13 Epigastric pain; Z88.1 Allergy status to other antibiotic agents; Z88.6 Allergy status to analgesic agent; Z91.041 Radiographic dye allergy status; Z91.048 Other nonmedicinal substance allergy status; F17.210 Nicotine dependence, cigarettes, uncomplicated
CPT/HCPCS: 43239; 88305; J3010

== ENCOUNTER → 2025-09-30 | Outpatient (REF) | payer OTHER ==
[2025-09-30 18:44] LABS: ALT/SGPT 28 U/L (7.0-40); AST/SGOT 19 U/L (<34); CALCIUM LEVEL 9.0 MG/DL (8.5-10.1); CARBON DIOXIDE LEVEL 28 MMOL/L (20-31); CHLORIDE LEVEL 105 MMOL/L (98-107); CHOLESTEROL LEVEL 114 MG/DL (<200); CHOLESTEROL RISK RATIO 2.16 (<5); CREATININE FOR GFR 0.92 MG/DL (0.70-1.30); GLOMERULAR FILTRATION RATE > 90.0 (>60); LDL CHOLESTEROL 33.5 MG/DL (<100); NON-HDL-C 61.3 MG/DL; POTASSIUM SERUM 4.2 MMOL/L (3.5-5.1); SODIUM LEVEL 140 MMOL/L (136-145); TRIGLYCERIDES LEVEL 139 MG/DL (<150)
[2025-09-30 19:19] LABS: ESTIMATED AVERAGE GLUCOSE 117.0 MG/DL (60-110)
== END ==
LOC: M LAB REF 16:23
PROVIDERS: ATTEND Pediatrics
DX: E66.3 Overweight (principal); Z68.27 Body mass index [BMI] 27.0-27.9, adult